=== PATIENT | male | born 1945 | race African-American/Black ===

== ENCOUNTER 2016-10-25 11:02 | Inpatient (IN) | payer OTHER ==
[2016-10-25 12:54] VITALS: BMI 24.2
--- NOTE | 2016-10-25 15:31 | HP ---
COWS - Scale Resting Pulse: 1= [place] 81-100 Sweatin= Chills/Flushing Restless Observation: 1= Difficult to Sit Still Pupil Size: 1= Pupils >than Normal Bone or Joint Aches: 2= Severe Diffuse Aches Runny Nose/ Eye Tearin= Nasal Congestion GI Upset > 30mins: 1= Stomach Cramp Tremor Observation: 1= Tremor [place], Not Seen Yawning Observation: 0= None Anxiety or Irritability: 2=Irritable/Anxious Goose Flesh Skin: 0=Smooth Skin COWS Score: 11 Admission ROS S - HPI Chief Complaint: I need help to stop using drugs Allergies/Adverse Reactions: Allergies Allergy/AdvReac Type Severity Reaction Status Date / Time No Known Allergies Allergy Verified 10/25/16 14:55 History of Present Illness: 71 y/o m pt with a h/o heroin dep. seeking detox. Exam Limitations: No Limitations - Ebola screening Have you traveled outside of the country in the last 21 days: No Have you had contact with anyone from an Ebola affected area: No Have you been sick,other than usual withdrawal symptoms: No - Review of Systems Constitutional: Malaise, Night Sweats, Changes in sleep EENT: reports: Blurred Vision, Dental Problems (dentures) Respiratory: reports: Shortness of Breath Cardiac: reports: No Symptoms Reported GI: reports: Abdominal cramping : reports: Frequency, Pain Musculoskeletal: reports: No Symptoms Reported Integumentary: reports: No Symptoms Reported Neuro: reports: Headache Endocrine: reports: No Symptoms Reported Hematology: reports: No Symptoms Reported Psychiatric: reports: Anxious, Depressed Other Systems: Reviewed and Negative Patient History - Patient Medical History Hx Anemia: No Hx Asthma: No Hx Chronic Obstructive Pulmonary Disease (COPD): Yes Hx Cancer: No Hx Cardiac Disorders: No Hx Congestive Heart Failure: No Hx Hypertension: Yes Hx Hypercholesterolemia: No Hx Pacemaker: No HX Cerebrovascular Accident: No Hx Seizures: No Hx Dementia: No Hx Diabetes: No Hx Gastrointestinal Disorders: No Hx Liver Disease: No Hx Genitourinary Disorders: No Hx Sexually Transmitted Disorders: No Hx Renal Disease (ESRD): No Hx Thyroid Disease: No Hx Human Immunodeficiency Virus (HIV): No Hx Hepatitis C: No Hx Depression: Yes Hx Suicide Attempt: No Hx Bipolar Disorder: No Hx Schizophrenia: No - Patient Surgical History Past Surgical History: No Hx Neurologic Surgery: No Hx Cataract Extraction: No Hx Cardiac Surgery: No Hx Lung Surgery: No Hx Breast Surgery: No Hx Breast Biopsy: No Hx Abdominal Surgery: No Hx Appendectomy: No Hx Cholecystectomy: No Hx Genitourinary Surgery: No Hx Section: No Hx Orthopedic Surgery: No Other Surgical History: hemorroidectomy Anesthesia Reaction: No - PPD History Previous Implant?: Yes Documented Results: Positive w/o proof Implanted On Prior [facility] Admission?: No - Reproductive History Patient is a Female of Child Bearing Age (11 -55 yrs old): No - Smoking Cessation Smoking history: Current every day smoker Have you smoked in the past 12 months: Yes Aproximately how many cigarettes per day: 10 Cigars Per Day: 0 Hx Chewing Tobacco Use: No Initiated information on smoking cessation: Yes 'Breaking Loose' booklet given: 10/25/16 - Substance & Tx. History Hx Alcohol Use: No Hx Substance Use: Yes Substance Use Type: Heroin Hx Substance Use Treatment: Yes - Substances Abused Heroin Route: Inhalation Frequency: Daily Amount used: 15-20 bags Age of first use: 30 Date of Last Use: 10/24/16 Alcohol Route: Oral Frequency: 1-2 times per week Amount used: 1 pint vodka Age of first use: 30 Date of Last Use: 10/24/16 Family Disease History - Family Disease History Family Disease History: Heart Disease: Father (HTN,ALCOHOL) Admission Physical Exam S - Vital Signs Vital Signs: Vital Signs - 24 hr 10/25/16 12:52 Temperature 97.4 F L Pulse Rate 73 Respiratory 20 Rate Blood Pressure 144/91 71 y/o m pt who slim but fit apearing younger than stated age, cooperating with exam. 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, Motor Strength 5/5, Normal Mood/Affect , Normal Response Integumentary: Yes: Moist Lymphatic: Yes: Within Normal Limits - Diagnostic (1) Alcohol abuse Current Visit: Yes Status: Acute (2) Opioid dependence with withdrawal Current Visit: Yes Status: Acute (3) HTN (hypertension) Current Visit: Yes Status: Chronic Qualifiers: Hypertension type: essential hypertension (4) Nicotine dependence Current Visit: Yes Status: Chronic Qualifiers: Nicotine product type: cigarettes Substance use status: uncomplicated Qualified Code(s): F17.210 - Nicotine dependence, cigarettes, uncomplicated Cleared for Admission [facility] - Detox or Rehab [facility] Level of Care: Medically Managed Detox Regimen/Protocol: Methadone [facility] Breath Alcohol Content Breath Alcohol Content: 0 Urine Drug Screen - Results Drug Screen Negative: No Urine Drug Screen Results: OPI-Opiates
[2016-10-25] MEDS ORDERED: ACETAMINOPHEN 325 MG TABLET (FP) PO PRN (15:50)
[2016-10-25] MEDS ORDERED: P-EPHED 60MG/TRIPROLIDI 2.5MG TABLET PO PRN (15:50)
[2016-10-25] MEDS ORDERED: MAG HYDROX/AL HYDROX/SIMETH 30 ML UNIT-DOSE CUP PO PRN (15:50)
[2016-10-25] MEDS ORDERED: MENTHOL/PHENOL 1 EACH UD MM PRN (15:50)
[2016-10-25] MEDS ORDERED: METHADONE HCL 10 MG TABLET (FOR DETOX USE ONLY) PO ONE ×2 (15:50→23:00)
[2016-10-25] MEDS ORDERED: hydrOXYzine PAMOATE 25 MG CAPSULE (FP) PO PRN (15:50)
[2016-10-25] MEDS ORDERED: MAGNESIUM CITRATE 300 ML BOTTLE PO PRN (15:50)
[2016-10-25] MEDS ORDERED: guaiFENesin/D-METHORPHAN HB 10 ML UNIT-DOSE CUPS PO PRN (15:50)
[2016-10-25] MEDS ORDERED: NICOTINE POLACRILEX 4 MG GUM BUC PRN (15:50)
[2016-10-25] MEDS ORDERED: MAGNESIUM HYDROX 2400MG/30ML ORAL SUSPENSION 30 ML CUP PO PRN (15:50)
[2016-10-25] MEDS ORDERED: LOPERAMIDE HCL 2 MG CAPSULE PO PRN (15:50)
[2016-10-25] MEDS: diazePAM 5 MG TABLET PO PRN (17:20)
--- NOTE | 2016-10-25 17:31 | CONSULT ---
[facility] Psychiatric Consult - Data Date of interview: 10/25/16 Admission source: [facility] Identifying data: Readmission to [facility] for this 71 y/o AA male seeking detox treatment for alcohol and heroin dependence.Patient is ,a father of three,domiciled and employed. Substance Abuse History: - Smoking Cessation. Smoking history: Current every day smoker. Have you smoked in the past 12 months: Yes. Aproximately how many cigarettes per day: 10. Cigars Per Day: 0. Hx Chewing Tobacco Use: No. Initiated information on smoking cessation: Yes. 'Breaking Loose' booklet given : 10/25/16. - Substance & Tx. History. Hx Alcohol Use: No. Hx Substance Use: Yes. Substance Use Type: Heroin. Hx Substance Use Treatment: Yes. - Substances Abused. Heroin. Route: Inhalation. Frequency: Daily. Amount used: 15-20 bags. Age of first use: 30. Date of Last Use: 10/24/16. Alcohol. Route: Oral. Frequency: 1-2 times per week. Amount used: 1 pint vodka. Age of first use: 30. Date of Last Use: 10/24/16. Confirmed by patient. Medical History: Hypertension. Psychiatric History: Patient denies history of mental illness.Used to see a psychiatrist for the management of insomnia.Mr Wiggins indicates that a low dose of seroquel (25 mg/hs) had helped him in the past.No history of suicide attempts. Physical/Sexual Abuse/Trauma History: Patient denies. Mental Status Exam - Mental Status Exam Alert and Oriented to: Time, Place, Person Cognitive Function: Good Patient Appearance: Well Groomed Mood: Hopeful, Euthymic Affect: Appropriate, Normal Range Patient Behavior: Fatigued, Appropriate, Cooperative Speech Pattern: Clear, Appropriate Voice Loudness: Normal Thought Process: Goal Oriented Thought Disorder: Not Present Hallucinations: Denies Suicidal Ideation: Denies Homicidal Ideation: Denies Insight/Judgement: Poor Sleep: Poorly, Difficulty falling asleep Appetite: Fair Muscle strength/Tone: Normal Gait/Station: Normal Psychiatric Findings - Problem List ([place] 1, 2,3) (1) Opioid dependence with withdrawal Current Visit: Yes Status: Acute (2) Alcohol dependence Current Visit: Yes Status: Acute Qualifiers: Substance use status: in withdrawal Complication of substance-induced condition: uncomplicated Qualified Code(s): F10.230 - Alcohol dependence with withdrawal, uncomplicated (3) Nicotine dependence Current Visit: Yes Status: Acute Qualifiers: Nicotine product type: cigarettes Substance use status: uncomplicated Qualified Code(s): F17.210 - Nicotine dependence, cigarettes, uncomplicated (4) HTN (hypertension) Current Visit: Yes Status: Chronic Qualifiers: Hypertension type: essential hypertension (5) Insomnia Current Visit: Yes Status: Acute - Initial Treatment Plan Initial Treatment Plan: Psychoeducation.Detoxification.Seroquel 25 mg po hs.Side effects/benefits reviewed with patient.He agrees with this careplan.Observation.
[2016-10-25] MEDS ORDERED: amLODIPine BESYLATE 10 MG TABLET (FP) PO ONE ×2 (17:45→20:45)
[2016-10-25] MEDS ORDERED: QUEtiapine FUMARATE 25 MG TABLET (FP) PO SCH (22:00)
[2016-10-25] MEDS ORDERED: diphenhydrAMINE HCL 50 MG CAPSULE PO PRN (22:00)
[2016-10-25 22:12] LABS: URINE APPEARANCE CLEAR; URINE BILIRUBIN NEGATIVE (NEGATIVE); URINE BLOOD NEGATIVE (NEGATIVE); URINE COLOR LTYELLOW; URINE GLUCOSE (UA) NEGATIVE (NEGATIVE); URINE KETONE NEGATIVE (NEGATIVE); URINE LEUK ESTERASE NEGATIVE (NEGATIVE); URINE NITRITE NEGATIVE (NEGATIVE); URINE PROTEIN NEGATIVE (NEGATIVE); URINE UROBILINOGEN NEGATIVE E.U./dl (0.2-1.0)
[2016-10-25] MEDS: THIAMINE HCL 100 MG TABLET (FP) PO SCH (22:17)
[2016-10-26] MEDS: diazePAM 5 MG TABLET PO PRN (01:22)
[2016-10-26] MEDS: IBUPROFEN 400 MG TABLET (FP) PO PRN (01:24)
[2016-10-26] MEDS ORDERED: CYCLOBENZAPRINE HCL 10 MG TABLET (FP) PO PRN (03:06)
[2016-10-26] MEDS ORDERED: METHADONE HCL 10 MG TABLET (FOR DETOX USE ONLY) PO ONE (10:00)
[2016-10-26] MEDS: PRENATAL VITAMINS W/ FOLIC ACID TABLET (FP) PO SCH (10:23)
[2016-10-26] MEDS: NICOTINE 21 MG/24 HOURS TOPICAL PATCH TD SCH (10:23)
[2016-10-26] MEDS: amLODIPine BESYLATE 10 MG TABLET (FP) PO SCH (10:23)
[2016-10-26 10:38] LABS: MCH 28.9 pg (25.7-33.7); MCHC 32.8 g/dl (32.0-35.9); MEAN CELL VOLUME 88.1 fl (80-96); MEAN PLT VOLUME 8.4 fl (7.5-11.1); PLATELET COUNT 198 K/MM3 (134-434); WHITE BLOOD COUNT 5.8 K/mm3 (4.0-10.0)
[2016-10-26 11:00] LABS: ALBUMIN 3.7 g/dl (3.4-5.0); ALK PHOS 131 U/L (45-117); ANION GAP 11 (8-16); BILIRUBIN,TOTAL 1.2 mg/dL (0.2-1.0); CALCIUM 9.1 mg/dL (8.5-10.1); CO2 30 mmol/L (21-32); COCKROFT - GAULT 72.44; CREATININE 0.9 mg/dL (0.7-1.3); GLUCOSE,RANDOM 149 mg/dL (74-106); SGOT/AST 27 U/L (15-37); SGPT/ALT 43 U/L (12-78); TOT PROT 6.6 g/dl (6.4-8.2)
--- NOTE | 2016-10-26 11:44 | PN ---
BHS COWS - Scale Resting Pulse: 0= [place] 80 or Below Sweatin= Chills/Flushing Restless Observation: 3= Extraneous Movement Pupil Size: 2= Moderately Dilated Bone or Joint Aches: 4=Acute Joint/Muscle Pain Runny Nose/ Eye Tearin= Nasal Congestion GI Upset > 30mins: 1= Stomach Cramp Tremor Observation of Outstretched Hands: 2= Slight Tremor Visible Yawning Observation: 2= >3x During Session Anxiety or Irritability: 2=Irritable/Anxious Goose Flesh Skin: 0=Smooth Skin COWS Score: 18 BHS Progress Note (SOAP) Subjective: ANXIETY,SWEATS,FATIGUE. Objective: 10/26/16 11:41 Vital Signs Temperature 96.5 F L 10/26/16 10:26 Pulse Rate 79 10/26/16 10:26 Respiratory Rate 18 10/26/16 10:26 Blood Pressure 132/85 10/26/16 10:26 O2 Sat by Pulse Oximetry (%) Laboratory Last Values WBC 5.8 K/mm3 (4.0-10.0) 10/26/16 06:00 RBC 4.57 M/mm3 (4.00-5.60) 10/26/16 06:00 Hgb 13.2 GM/dL (11.7-16.9) 10/26/16 06:00 Hct 40.3 % (35.4-49) 10/26/16 06:00 MCV 88.1 fl (80-96) 10/26/16 06:00 MCHC 32.8 g/dl (32.0-35.9) 10/26/16 06:00 RDW 12.0 % (11.9-15.9) 10/26/16 06:00 Plt Count 198 K/MM3 (134-434) 10/26/16 06:00 MPV 8.4 fl (7.5-11.1) 10/26/16 06:00 Sodium 141 mmol/L (136-145) 10/26/16 06:00 Potassium 3.8 mmol/L (3.5-5.1) 10/26/16 06:00 Chloride 100 mmol/L (98-107) 10/26/16 06:00 Carbon Dioxide 30 mmol/L (21-32) 10/26/16 06:00 Anion Gap 11 (8-16) 10/26/16 06:00 BUN 13 mg/dL (7-18) D 10/26/16 06:00 Creatinine 0.9 mg/dL (0.7-1.3) 10/26/16 06:00 Creat Clearance w eGFR > 60 (>60) 10/26/16 06:00 Random Glucose 149 mg/dL (74-106) H D 10/26/16 06:00 Calcium 9.1 mg/dL (8.5-10.1) 10/26/16 06:00 Total Bilirubin 1.2 mg/dL (0.2-1.0) H 10/26/16 06:00 AST 27 U/L (15-37) D 10/26/16 06:00 ALT 43 U/L (12-78) D 10/26/16 06:00 Alkaline Phosphatase 131 U/L (45-117) H 10/26/16 06:00 Total Protein 6.6 g/dl (6.4-8.2) 10/26/16 06:00 Albumin 3.7 g/dl (3.4-5.0) 10/26/16 06:00 Urine Color Ltyellow 10/25/16 21:30 Urine Appearance Clear 10/25/16 21:30 Urine pH 8.0 (5.0-8.0) 10/25/16 21:30 Urine Protein Negative (NEGATIVE) 10/25/16 21:30 Urine Glucose (UA) Negative (NEGATIVE) 10/25/16 21:30 Urine Ketones Negative (NEGATIVE) 10/25/16 21:30 Urine Blood Negative (NEGATIVE) 10/25/16 21:30 Urine Nitrite Negative (NEGATIVE) 10/25/16 21:30 Urine Bilirubin Negative (NEGATIVE) 10/25/16 21:30 Urine Urobilinogen Negative E.U./dl (0.2-1.0) 10/25/16 21:30 Ur Leukocyte Esterase Negative (NEGATIVE) 10/25/16 21:30 Assessment: 10/26/16 11:41 WITHDRAWAL SX Plan: CONTINUE DETOX
--- NOTE | 2016-10-26 17:18 | EKG ---
Test Reason : Blood Pressure : / mmHG Vent. Rate : 075 BPM Atrial Rate : 075 BPM P-R Int : 168 ms QRS Dur : 084 ms QT Int : 372 ms P-R-T Axes : 078 063 -76 degrees QTc Int : 415 ms NORMAL SINUS RHYTHM T WAVE ABNORMALITY, CONSIDER INFERIOR ISCHEMIA ABNORMAL ECG WHEN COMPARED WITH ECG OF 25-OCT-2016 16:24, Confirmed by GEORGIA ORDOÑEZ MD ([id number]) on 10/26/2016 5:18:06 PM Referred By: Confirmed By:GEORGIA ORDOÑEZ MD
--- NOTE | 2016-10-26 17:21 | EKG ---
Test Reason : Blood Pressure : / mmHG Vent. Rate : 064 BPM Atrial Rate : 064 BPM P-R Int : 162 ms QRS Dur : 084 ms QT Int : 408 ms P-R-T Axes : 079 068 -63 degrees QTc Int : 420 ms SINUS RHYTHM WITH MARKED SINUS ARRHYTHMIA SEPTAL INFARCT , AGE UNDETERMINED T WAVE ABNORMALITY, CONSIDER INFERIOR ISCHEMIA ABNORMAL ECG NO PREVIOUS ECGS AVAILABLE Confirmed by GEORGIA ORDOÑEZ MD ([id number]) on 10/26/2016 5:20:56 PM Referred By: Confirmed By:GEORGIA ORDOÑEZ MD
[2016-10-26] MEDS: THIAMINE HCL 100 MG TABLET (FP) PO SCH (22:11)
[2016-10-27] MEDS: diazePAM 5 MG TABLET PO PRN (05:53)
[2016-10-27] MEDS ORDERED: METHADONE HCL 5 MG TABLET (FOR DETOX USE ONLY) PO ONE (10:00)
[2016-10-27] MEDS: PRENATAL VITAMINS W/ FOLIC ACID TABLET (FP) PO SCH (10:22)
[2016-10-27] MEDS: amLODIPine BESYLATE 10 MG TABLET (FP) PO SCH (10:22)
[2016-10-27] MEDS: NICOTINE 21 MG/24 HOURS TOPICAL PATCH TD SCH (10:23)
[2016-10-27] MEDS: IBUPROFEN 400 MG TABLET (FP) PO PRN (11:49)
--- NOTE | 2016-10-27 13:07 | PN ---
S COWS - Scale Resting Pulse: 1= [place] 81-100 Sweatin= Chills/Flushing Restless Observation: 1= Difficult to Sit Still Pupil Size: 0= Normal to Room Light Bone or Joint Aches: 2= Severe Diffuse Aches Runny Nose/ Eye Tearin= Runny Nose/Eyes GI Upset > 30mins: 1= Stomach Cramp Tremor Observation of Outstretched Hands: 2= Slight Tremor Visible Yawning Observation: 1= 1-2x During Session Anxiety or Irritability: 2=Irritable/Anxious Goose Flesh Skin: 3=[place]il[place] COWS Score: 16 BHS Progress Note (SOAP) Subjective: Fatigue, Interrupted Sleep, H/A, Sweating. Objective: PT. A & O X 3, OBSERVED AMBULATING ON UNIT. PT. DENIES CHEST PAIN. 10/27/16 13:05 Vital Signs Temperature 96.5 F L 10/27/16 10:21 Pulse Rate 86 10/27/16 10:21 Respiratory Rate 18 10/27/16 10:21 Blood Pressure 140/90 10/27/16 10:21 O2 Sat by Pulse Oximetry (%) Laboratory Last Values WBC 5.8 K/mm3 (4.0-10.0) 10/26/16 06:00 RBC 4.57 M/mm3 (4.00-5.60) 10/26/16 06:00 Hgb 13.2 GM/dL (11.7-16.9) 10/26/16 06:00 Hct 40.3 % (35.4-49) 10/26/16 06:00 MCV 88.1 fl (80-96) 10/26/16 06:00 MCHC 32.8 g/dl (32.0-35.9) 10/26/16 06:00 RDW 12.0 % (11.9-15.9) 10/26/16 06:00 Plt Count 198 K/MM3 (134-434) 10/26/16 06:00 MPV 8.4 fl (7.5-11.1) 10/26/16 06:00 Sodium 141 mmol/L (136-145) 10/26/16 06:00 Potassium 3.8 mmol/L (3.5-5.1) 10/26/16 06:00 Chloride 100 mmol/L (98-107) 10/26/16 06:00 Carbon Dioxide 30 mmol/L (21-32) 10/26/16 06:00 Anion Gap 11 (8-16) 10/26/16 06:00 BUN 13 mg/dL (7-18) D 10/26/16 06:00 Creatinine 0.9 mg/dL (0.7-1.3) 10/26/16 06:00 Creat Clearance w eGFR > 60 (>60) 10/26/16 06:00 Random Glucose 149 mg/dL (74-106) H D 10/26/16 06:00 Calcium 9.1 mg/dL (8.5-10.1) 10/26/16 06:00 Total Bilirubin 1.2 mg/dL (0.2-1.0) H 10/26/16 06:00 AST 27 U/L (15-37) D 10/26/16 06:00 ALT 43 U/L (12-78) D 10/26/16 06:00 Alkaline Phosphatase 131 U/L (45-117) H 10/26/16 06:00 Total Protein 6.6 g/dl (6.4-8.2) 10/26/16 06:00 Albumin 3.7 g/dl (3.4-5.0) 10/26/16 06:00 Urine Color Ltyellow 10/25/16 21:30 Urine Appearance Clear 10/25/16 21:30 Urine pH 8.0 (5.0-8.0) 10/25/16 21:30 Ur Specific [place] 1.015 (1.005-1.025) 10/25/16 21:30 Urine Protein Negative (NEGATIVE) 10/25/16 21:30 Urine Glucose (UA) Negative (NEGATIVE) 10/25/16 21:30 Urine Ketones Negative (NEGATIVE) 10/25/16 21:30 Urine Blood Negative (NEGATIVE) 10/25/16 21:30 Urine Nitrite Negative (NEGATIVE) 10/25/16 21:30 Urine Bilirubin Negative (NEGATIVE) 10/25/16 21:30 Urine Urobilinogen Negative E.U./dl (0.2-1.0) 10/25/16 21:30 Ur Leukocyte Esterase Negative (NEGATIVE) 10/25/16 21:30 RPR Titer Nonreactive (NONREACTIVE) 10/26/16 06:00 LABS NOTED. Assessment: 10/27/16 13:06 WITHDRAWAL SYMPTOMS. Plan: CONTINUE DETOX. ADVISED PATIENT TO FOLLOW-UP WITH LOCKER ROOM SUPERVISOR AFTER DISCHARGE FROM DETOX FOR GENERAL MEDICAL ASSESSMENT AND FOR ABNORMAL ADMISSION LAB VALUES.
--- NOTE | 2016-10-27 13:52 | PN ---
[facility] Progress Note Note: Psychiatry Attending's note. Request for re-consult is aknowledged. Reason offered : oversedation on seroquel. Chart reviewed.Patient is NOT on quetiapine. Mr Wiggins is examined at bedside. Found to be alert and fully oriented.Conversant. Does admit to daytime sleepiness/drowsiness. Observed walking around unit shortly after interview. No evidence of unsteady gait.Appropriate grooming. Adherent to his plan of care.Vitals : 136/85 @ 13:25. Recommendations : Falls precautions. Medical consult. Revisit detox protocol. No psychiatric issues at this time.
[2016-10-27] MEDS: THIAMINE HCL 100 MG TABLET (FP) PO SCH (22:01)
[2016-10-28] MEDS: IBUPROFEN 400 MG TABLET (FP) PO PRN (06:10)
[2016-10-28] MEDS ORDERED: METHADONE HCL 5 MG TABLET (FOR DETOX USE ONLY) PO ONE (10:00)
[2016-10-28] MEDS: NICOTINE 21 MG/24 HOURS TOPICAL PATCH TD SCH (10:11)
[2016-10-28] MEDS: amLODIPine BESYLATE 10 MG TABLET (FP) PO SCH (10:11)
[2016-10-28] MEDS: PRENATAL VITAMINS W/ FOLIC ACID TABLET (FP) PO SCH (10:11)
--- NOTE | 2016-10-28 12:41 | PN ---
BHS Progress Note (SOAP) Subjective: Interrupted sleep, H/A, Sweating. Objective: PT. A & O X 3, OBSERVED AMBULATING ON UNIT. PT. DENIES CHEST PAIN. 10/28/16 12:39 Vital Signs Temperature 98.8 F 10/28/16 09:36 Pulse Rate 75 10/28/16 09:36 Respiratory Rate 18 10/28/16 09:36 Blood Pressure 118/73 10/28/16 09:36 O2 Sat by Pulse Oximetry (%) Laboratory Last Values WBC 5.8 K/mm3 (4.0-10.0) 10/26/16 06:00 RBC 4.57 M/mm3 (4.00-5.60) 10/26/16 06:00 Hgb 13.2 GM/dL (11.7-16.9) 10/26/16 06:00 Hct 40.3 % (35.4-49) 10/26/16 06:00 MCV 88.1 fl (80-96) 10/26/16 06:00 MCHC 32.8 g/dl (32.0-35.9) 10/26/16 06:00 RDW 12.0 % (11.9-15.9) 10/26/16 06:00 Plt Count 198 K/MM3 (134-434) 10/26/16 06:00 MPV 8.4 fl (7.5-11.1) 10/26/16 06:00 Sodium 141 mmol/L (136-145) 10/26/16 06:00 Potassium 3.8 mmol/L (3.5-5.1) 10/26/16 06:00 Chloride 100 mmol/L (98-107) 10/26/16 06:00 Carbon Dioxide 30 mmol/L (21-32) 10/26/16 06:00 Anion Gap 11 (8-16) 10/26/16 06:00 BUN 13 mg/dL (7-18) D 10/26/16 06:00 Creatinine 0.9 mg/dL (0.7-1.3) 10/26/16 06:00 Creat Clearance w eGFR > 60 (>60) 10/26/16 06:00 Random Glucose 149 mg/dL (74-106) H D 10/26/16 06:00 Calcium 9.1 mg/dL (8.5-10.1) 10/26/16 06:00 Total Bilirubin 1.2 mg/dL (0.2-1.0) H 10/26/16 06:00 AST 27 U/L (15-37) D 10/26/16 06:00 ALT 43 U/L (12-78) D 10/26/16 06:00 Alkaline Phosphatase 131 U/L (45-117) H 10/26/16 06:00 Total Protein 6.6 g/dl (6.4-8.2) 10/26/16 06:00 Albumin 3.7 g/dl (3.4-5.0) 10/26/16 06:00 Urine Color Ltyellow 10/25/16 21:30 Urine Appearance Clear 10/25/16 21:30 Urine pH 8.0 (5.0-8.0) 10/25/16 21:30 Ur Specific [place] 1.015 (1.005-1.025) 10/25/16 21:30 Urine Protein Negative (NEGATIVE) 10/25/16 21:30 Urine Glucose (UA) Negative (NEGATIVE) 10/25/16 21:30 Urine Ketones Negative (NEGATIVE) 10/25/16 21:30 Urine Blood Negative (NEGATIVE) 10/25/16 21:30 Urine Nitrite Negative (NEGATIVE) 10/25/16 21:30 Urine Bilirubin Negative (NEGATIVE) 10/25/16 21:30 Urine Urobilinogen Negative E.U./dl (0.2-1.0) 10/25/16 21:30 Ur Leukocyte Esterase Negative (NEGATIVE) 10/25/16 21:30 RPR Titer Nonreactive (NONREACTIVE) 10/26/16 06:00 LABS NOTED. Assessment: 10/28/16 12:40 WITHDRAWAL SYMPTOMS. Plan: CONTINUE DETOX. ADVISED PATIENT TO FOLLOW-UP WITH SUPERVISOR [employer] AFTER DISCHARGE FROM DETOX FOR GENERAL MEDICAL ASSESSMENT AND FOR ABNORMAL DETOX ADMISSION LAB VALUES.
[2016-10-28] MEDS: THIAMINE HCL 100 MG TABLET (FP) PO SCH (22:09)
[2016-10-29] MEDS: PRENATAL VITAMINS W/ FOLIC ACID TABLET (FP) PO SCH (09:40)
[2016-10-29] MEDS: NICOTINE 21 MG/24 HOURS TOPICAL PATCH TD SCH (09:40)
[2016-10-29] MEDS: amLODIPine BESYLATE 10 MG TABLET (FP) PO SCH (09:40)
[2016-10-29] MEDS ORDERED: METHADONE HCL 10 MG TABLET (FOR DETOX USE ONLY) PO ONE (10:00)
--- NOTE | 2016-10-29 13:59 | PN ---
BHS Progress Note (SOAP) Subjective: Interrupted Sleep, H/A, Tremors. Objective: PT. A & O X 3, OBSERVED AMBULATING ON UNIT. PT. DENIES CHEST PAIN. 10/29/16 13:58 Vital Signs Temperature 98.2 F 10/29/16 09:56 Pulse Rate 73 10/29/16 09:56 Respiratory Rate 18 10/29/16 09:56 Blood Pressure 128/80 10/29/16 09:56 O2 Sat by Pulse Oximetry (%) Laboratory Last Values WBC 5.8 K/mm3 (4.0-10.0) 10/26/16 06:00 RBC 4.57 M/mm3 (4.00-5.60) 10/26/16 06:00 Hgb 13.2 GM/dL (11.7-16.9) 10/26/16 06:00 Hct 40.3 % (35.4-49) 10/26/16 06:00 MCV 88.1 fl (80-96) 10/26/16 06:00 MCHC 32.8 g/dl (32.0-35.9) 10/26/16 06:00 RDW 12.0 % (11.9-15.9) 10/26/16 06:00 Plt Count 198 K/MM3 (134-434) 10/26/16 06:00 MPV 8.4 fl (7.5-11.1) 10/26/16 06:00 Sodium 141 mmol/L (136-145) 10/26/16 06:00 Potassium 3.8 mmol/L (3.5-5.1) 10/26/16 06:00 Chloride 100 mmol/L (98-107) 10/26/16 06:00 Carbon Dioxide 30 mmol/L (21-32) 10/26/16 06:00 Anion Gap 11 (8-16) 10/26/16 06:00 BUN 13 mg/dL (7-18) D 10/26/16 06:00 Creatinine 0.9 mg/dL (0.7-1.3) 10/26/16 06:00 Creat Clearance w eGFR > 60 (>60) 10/26/16 06:00 Random Glucose 149 mg/dL (74-106) H D 10/26/16 06:00 Calcium 9.1 mg/dL (8.5-10.1) 10/26/16 06:00 Total Bilirubin 1.2 mg/dL (0.2-1.0) H 10/26/16 06:00 AST 27 U/L (15-37) D 10/26/16 06:00 ALT 43 U/L (12-78) D 10/26/16 06:00 Alkaline Phosphatase 131 U/L (45-117) H 10/26/16 06:00 Total Protein 6.6 g/dl (6.4-8.2) 10/26/16 06:00 Albumin 3.7 g/dl (3.4-5.0) 10/26/16 06:00 Urine Color Ltyellow 10/25/16 21:30 Urine Appearance Clear 10/25/16 21:30 Urine pH 8.0 (5.0-8.0) 10/25/16 21:30 Ur Specific [place] 1.015 (1.005-1.025) 10/25/16 21:30 Urine Protein Negative (NEGATIVE) 10/25/16 21:30 Urine Glucose (UA) Negative (NEGATIVE) 10/25/16 21:30 Urine Ketones Negative (NEGATIVE) 10/25/16 21:30 Urine Blood Negative (NEGATIVE) 10/25/16 21:30 Urine Nitrite Negative (NEGATIVE) 10/25/16 21:30 Urine Bilirubin Negative (NEGATIVE) 10/25/16 21:30 Urine Urobilinogen Negative E.U./dl (0.2-1.0) 10/25/16 21:30 Ur Leukocyte Esterase Negative (NEGATIVE) 10/25/16 21:30 RPR Titer Nonreactive (NONREACTIVE) 10/26/16 06:00 LABS NOTED. Assessment: 10/29/16 13:58 WITHDRAWAL SYMPTOMS. Plan: CONTINUE DETOX.
[2016-10-29] MEDS: THIAMINE HCL 100 MG TABLET (FP) PO SCH (22:24)
[2016-10-29] MEDS: IBUPROFEN 400 MG TABLET (FP) PO PRN (22:25)
[2016-10-30] MEDS ORDERED: METHADONE HCL 5 MG TABLET (FOR DETOX USE ONLY) PO ONE (06:00)
[2016-10-30 06:35] VITALS: PULSE 71
[2016-10-30 09:33] VITALS: BP 129/80; TEMP 97.7
[2016-10-30] MEDS: PRENATAL VITAMINS W/ FOLIC ACID TABLET (FP) PO SCH (10:20)
[2016-10-30] MEDS: NICOTINE 21 MG/24 HOURS TOPICAL PATCH TD SCH (10:20)
[2016-10-30] MEDS: amLODIPine BESYLATE 10 MG TABLET (FP) PO SCH (10:20)
--- NOTE | 2016-10-30 16:54 | DS ---
[facility] Detox Discharge Summary Admission Date: 10/25/16 Discharge Date: 10/30/16 - History Present History: Opioid Dependence Additional Comments: ADVISED PATIENT TO FOLLOW-UP WITH SYSTEMS ENGINEER / REHAB MEDICAL PROVIDER AFTER DISCHARGE FROM DETOX FOR GENERAL MEDICAL ASSESSMENT. Pertinent Past History: COPD, Depression, HTN. - Physical Exam Results Vital Signs: Vital Signs Temperature 97.7 F 10/30/16 09:33 Pulse Rate 71 10/30/16 09:33 Respiratory Rate 18 10/30/16 09:33 Blood Pressure 129/80 10/30/16 09:33 O2 Sat by Pulse Oximetry (%) Pertinent Admission Physical Exam Findings: WITHDRAWAL SYMPTOMS. Laboratory Tests 10/25/16 10/26/16 10/26/16 21:30 06:00 06:00 WBC 5.8 RBC 4.57 Hgb 13.2 Hct 40.3 MCV 88.1 MCHC 32.8 RDW 12.0 Plt Count 198 MPV 8.4 Sodium 141 Potassium 3.8 Chloride 100 Carbon Dioxide 30 Anion Gap 11 BUN 13 D Creatinine 0.9 Creat Clearance w eGFR > 60 Random Glucose 149 H D Calcium 9.1 Total Bilirubin 1.2 H AST 27 D ALT 43 D Alkaline Phosphatase 131 H Total Protein 6.6 Albumin 3.7 Urine Color Ltyellow Urine Appearance Clear Urine pH 8.0 Ur Specific [place] 1.015 Urine Protein Negative Urine Glucose (UA) Negative Urine Ketones Negative Urine Blood Negative Urine Nitrite Negative Urine Bilirubin Negative Urine Urobilinogen Negative Ur Leukocyte Esterase Negative RPR Titer 10/26/16 06:00 WBC RBC Hgb Hct MCV MCHC RDW Plt Count MPV Sodium Potassium Chloride Carbon Dioxide Anion Gap BUN Creatinine Creat Clearance w eGFR Random Glucose Calcium Total Bilirubin AST ALT Alkaline Phosphatase Total Protein Albumin Urine Color Urine Appearance Urine pH Ur Specific [place] Urine Protein Urine Glucose (UA) Urine Ketones Urine Blood Urine Nitrite Urine Bilirubin Urine Urobilinogen Ur Leukocyte Esterase RPR Titer Nonreactive LABS NOTED. - Treatment Hospital Course: Detox Protocol Followed, Detoxed Safely, Responded well, Discharged Condition Good, Rehab Referral Accepted Patient has Accepted a Rehab Referral to: YES - [facility]. - Medication Discharge Medications: Ambulatory Orders Amlodipine Besylate [Norvasc -] 10 mg PO DAILY 10/21/15 - Diagnosis (1) Alcohol abuse Status: Acute (2) Nicotine dependence Status: Chronic Qualifiers: Nicotine product type: cigarettes Substance use status: uncomplicated Qualified Code(s): F17.210 - Nicotine dependence, cigarettes, uncomplicated (3) Opioid dependence with withdrawal Status: Acute (4) HTN (hypertension) Status: Chronic Qualifiers: Hypertension type: essential hypertension (5) Insomnia Status: Acute Qualifiers: Insomnia type: unspecified Qualified Code(s): G47.00 - Insomnia, unspecified - AMA Did Patient Leave Against Medical Advice: No
== END 2016-10-30 12:23 | disposition other institution (70) | DRG 897 ==
LOC: YASAS 11:02 → Y3N 16:17
PROVIDERS: ADMIT Internal Medicine; ATTEND Internal Medicine
PROC: HZ2ZZZZ Detoxification Services for Substance Abuse Treatment (ICD-10-PCS; principal; 2016-10-30)
DX: F11.23 Opioid dependence with withdrawal (principal); F10.230 Alcohol dependence with withdrawal, uncomplicated; F17.210 Nicotine dependence, cigarettes, uncomplicated; G47.00 Insomnia, unspecified; I10 Essential (primary) hypertension
CPT/HCPCS: 36415; 80053; 81003; 85027; 86593; 93005; 93010

== ENCOUNTER 2016-10-30 12:37 | Inpatient (IN) | payer OTHER ==
[2016-10-30] MEDS ORDERED: P-EPHED 60MG/TRIPROLIDI 2.5MG TABLET PO PRN (15:55)
[2016-10-30] MEDS ORDERED: LOPERAMIDE HCL 2 MG CAPSULE PO PRN (15:55)
[2016-10-30] MEDS ORDERED: guaiFENesin/D-METHORPHAN HB 10 ML UNIT-DOSE CUPS PO PRN (15:55)
[2016-10-30] MEDS ORDERED: ACETAMINOPHEN 325 MG TABLET (FP) PO PRN (15:55)
[2016-10-30] MEDS ORDERED: MAG HYDROX/AL HYDROX/SIMETH 30 ML UNIT-DOSE CUP PO PRN (15:55)
[2016-10-30] MEDS ORDERED: MENTHOL/PHENOL 1 EACH UD MM PRN (15:55)
[2016-10-30] MEDS ORDERED: IBUPROFEN 400 MG TABLET (FP) PO PRN (15:55)
[2016-10-30] MEDS ORDERED: MAGNESIUM HYDROX 2400MG/30ML ORAL SUSPENSION 30 ML CUP PO PRN (15:55)
[2016-10-30] MEDS ORDERED: MAGNESIUM CITRATE 300 ML BOTTLE PO PRN (15:55)
--- NOTE | 2016-10-30 16:00 | HP ---
[facility] Rehab Assess/Revision - Admission History Admitted to Rehab from: [facility] Date of Admission to Rehab: 10/30/16 - Vital signs Vital Signs: Vital Signs Period Temp Pulse Resp BP Sys/Cason Pulse Ox Last 24 Hr 97.7 F-97.7 F 71-71 18-18 142-142/73-73 - Findings Detox History & Physical reviewed: Yes Concur with findings: Yes Comments/Additional Findings: for rehab as protocol
[2016-10-30] MEDS: THIAMINE HCL 100 MG TABLET (FP) PO SCH (23:02)
[2016-10-31] MEDS: amLODIPine BESYLATE 10 MG TABLET (FP) PO SCH ×2 (07:39→10:04)
[2016-10-31] MEDS: NICOTINE 21 MG/24 HOURS TOPICAL PATCH TD SCH (10:03)
[2016-10-31] MEDS: PRENATAL VITAMINS W/ FOLIC ACID TABLET (FP) PO SCH (10:03)
[2016-10-31] MEDS: hydrOXYzine PAMOATE 50 MG CAPSULE (FP) PO PRN ×2 (19:05→23:14)
[2016-10-31] MEDS: diphenhydrAMINE HCL 50 MG CAPSULE PO PRN (21:41)
[2016-10-31] MEDS: THIAMINE HCL 100 MG TABLET (FP) PO SCH (21:41)
--- NOTE | 2016-11-01 07:45 | HP ---
Psychiatrist Admission - Data Date of interview: 11/01/16 Admission source: 3N Identifying data: This is the second [facility] admission for this 71 years old Black male, father of 3 children, unemployed on SSI, domiciled Medical History: Significant for COPD, HTN, PPD+ and history of surgery for hemorrhoid Psychiatric History: Patient denies history of mental illness.Used to see a psychiatrist for the management of insomnia.Mr Wiggins indicates that a low dose of seroquel (25 mg/hs) had helped him in the past.No history of suicide attempts. Physical/Sexual Abuse/Trauma History: Denies history of emotional, physical or sexual abuse as well as DV relationship Additional Comment: Reports history of 2 misdemeanor arrests. Denies being on probation at present Vital Signs: Vital Signs - 24 hr 10/31/16 10/31/16 11/01/16 10:29 10:45 00:30 Temperature Pulse Rate 83 83 Respiratory 18 18 18 Rate Blood Pressure 134/86 134/86 11/01/16 11/01/16 03:30 06:56 Temperature 98.4 F Pulse Rate 79 Respiratory 18 18 Rate Blood Pressure 141/96 Allergies/Adverse Reactions: Allergies Allergy/AdvReac Type Severity Reaction Status Date / Time No Known Allergies Allergy Verified 10/30/16 12:46 Date of last physical exam: 10/25/16 Concur with the findings of this exam: Yes - Substance Abuse/Tx History Hx Alcohol Use: Yes Hx Substance Use: Yes Substance Use Type: Alcohol (Started drinking alcohol at age 30, consumes one pint of vodka1-2 times weekly. Last drink on 10/24/16), Heroin (Started using heroin at age 30, consumes 15-20 bags daily. Last used on 10/24/16) Hx Substance Use Treatment: Yes (2 previous inpt detox & one inpt rehab @ [facility]) - Admission Criteria Previous failed treatment: No Poor recovery environment: Yes Comorbidities: Yes Lacks judgement: Yes Mental Status Exam - Mental Status Exam Alert and Oriented to: Time, Place, Person Cognitive Function: Fair Patient Appearance: Well Groomed Mood: Depressed Affect: Normal Range Patient Behavior: Cooperative Speech Pattern: Clear Voice Loudness: Normal Thought Process: Intact Thought Disorder: Not Present Hallucinations: Denies Suicidal Ideation: Denies Homicidal Ideation: Denies Insight/Judgement: Fair Sleep: Poorly Appetite: Good Muscle strength/Tone: Normal Gait/Station: Normal Psychiatric Findings - Problem List ([place] 1, 2,3) (1) Alcohol dependence Current Visit: No Status: Acute Qualifiers: Substance use status: in withdrawal Complication of substance-induced condition: uncomplicated Qualified Code(s): F10.230 - Alcohol dependence with withdrawal, uncomplicated (2) Opioid dependence Current Visit: No Status: Acute (3) Nicotine dependence Current Visit: No Status: Chronic Qualifiers: Nicotine product type: cigarettes Substance use status: uncomplicated Qualified Code(s): F17.210 - Nicotine dependence, cigarettes, uncomplicated (4) Substance induced mood disorder Current Visit: Yes Status: Acute (5) Substance or medication-induced sleep disorder, insomnia type Current Visit: No Status: Acute (6) HTN (hypertension) Current Visit: No Status: Chronic Qualifiers: Hypertension type: essential hypertension (7) PPD positive Current Visit: Yes Status: Acute - Initial Treatment Plan Initial Treatment Plan: 1) Continue Seroquel 25 mg po HS. 2) Monitor progress
[2016-11-01] MEDS: PRENATAL VITAMINS W/ FOLIC ACID TABLET (FP) PO SCH (10:27)
[2016-11-01] MEDS: amLODIPine BESYLATE 10 MG TABLET (FP) PO SCH (10:27)
[2016-11-01] MEDS: NICOTINE 21 MG/24 HOURS TOPICAL PATCH TD SCH (10:28)
[2016-11-01] MEDS: hydrOXYzine PAMOATE 50 MG CAPSULE (FP) PO PRN (21:50)
[2016-11-01] MEDS: THIAMINE HCL 100 MG TABLET (FP) PO SCH (21:50)
[2016-11-02] MEDS: diphenhydrAMINE HCL 50 MG CAPSULE PO PRN (01:35)
[2016-11-02] MEDS: hydrOXYzine PAMOATE 50 MG CAPSULE (FP) PO PRN (02:44)
[2016-11-02 06:49] VITALS: BP 134/78; PULSE 83; TEMP 97.6
[2016-11-02] MEDS: NICOTINE 21 MG/24 HOURS TOPICAL PATCH TD SCH (10:19)
[2016-11-02] MEDS: amLODIPine BESYLATE 10 MG TABLET (FP) PO SCH (10:19)
[2016-11-02] MEDS: PRENATAL VITAMINS W/ FOLIC ACID TABLET (FP) PO SCH (10:19)
== END 2016-11-02 14:00 | disposition left against medical advice (07) | DRG 894 ==
LOC: YASAS 12:37 → Y3W 12:39
PROVIDERS: ADMIT Psychiatry & Neurology Psychiatry; ATTEND Psychiatry & Neurology Psychiatry
PROC: HZ42ZZZ Group Counseling for Substance Abuse Treatment, Cognitive-Behavioral (ICD-10-PCS; principal; 2016-10-30)
DX: F11.20 Opioid dependence, uncomplicated (principal); F19.282 Other psychoactive substance dependence with psychoactive substance-induced sleep disorder; F10.20 Alcohol dependence, uncomplicated; F17.210 Nicotine dependence, cigarettes, uncomplicated; F19.24 Other psychoactive substance dependence with psychoactive substance-induced mood disorder; I10 Essential (primary) hypertension; R76.11 Nonspecific reaction to tuberculin skin test without active tuberculosis

== ENCOUNTER 2017-10-10 12:18 | Inpatient (IN) | payer OTHER ==
[2017-10-10 15:28] VITALS: BMI 27.1
--- NOTE | 2017-10-10 17:31 | HP ---
COWS - Scale Resting Pulse: 0= [place] 80 or Below Sweatin=Flushed/Facial Moisture Restless Observation: 1= Difficult to Sit Still Pupil Size: 0= Normal to Room Light Bone or Joint Aches: 2= Severe Diffuse Aches Runny Nose/ Eye Tearin= Runny Nose/Eyes GI Upset > 30mins: 2= Nausea/Diarrhea Tremor Observation: 1= Tremor [place], Not Seen Yawning Observation: 1= 1-2x During Session Anxiety or Irritability: 1=Feels Anxious/Irritable Goose Flesh Skin: 0=Smooth Skin COWS Score: 12 Admission [facility] Chief Complaint: Heroin withdrawal symptoms. Allergies/Adverse Reactions: Allergies Allergy/AdvReac Type Severity Reaction Status Date / Time No Known Allergies Allergy Verified 10/10/17 16:18 History of Present Illness: Patient present with Heroin withdrawal symptoms. Has attempted detox in past. Last time in 10/2016 at [facility]. Patient reports drinking socially but uses heroin on a daily basis. Pt started using heroin at age 50. Snorts up to 10 bags daily. Last time he used was this morning. Has hx of depression and HTN. Denies history of overdose. Denies SI/HI and suicide attempts. Exam Limitations: No Limitations - Ebola screening Have you traveled outside of the country in the last 21 days: No Have you had contact with anyone from an Ebola affected area: No Have you been sick,other than usual withdrawal symptoms: No Do you have a fever: No - Review of Systems Constitutional: Chills, Night Sweats, Changes in sleep, Unintentional Wgt. Loss EENT: reports: Blurred Vision, Nose Congestion Respiratory: reports: Wheezing Cardiac: reports: No Symptoms Reported GI: reports: Diarrhea, Nausea, Poor Fluid Intake, Abdominal cramping : reports: No Symptoms Reported Musculoskeletal: reports: Back Pain, Muscle Pain Integumentary: reports: Sweating Neuro: reports: Headache, Tremors Endocrine: reports: No Symptoms Reported Hematology: reports: No Symptoms Reported Psychiatric: reports: Orientated x3, Anxious, Depressed Patient History - Patient Medical History Hx Anemia: No Hx Asthma: No Hx Chronic Obstructive Pulmonary Disease (COPD): Yes Hx Cancer: No Hx Cardiac Disorders: No Hx Congestive Heart Failure: No Hx Hypertension: Yes Hx Hypercholesterolemia: No Hx Pacemaker: No HX Cerebrovascular Accident: No Hx Seizures: No Hx Dementia: No Hx Diabetes: No Hx Gastrointestinal Disorders: No Hx Liver Disease: No Hx Genitourinary Disorders: No Hx Sexually Transmitted Disorders: No Hx Renal Disease (ESRD): No Hx Thyroid Disease: No Hx Human Immunodeficiency Virus (HIV): No Hx Hepatitis C: No Hx Depression: Yes Hx Suicide Attempt: No Hx Bipolar Disorder: No Hx Schizophrenia: No - Patient Surgical History Past Surgical History: Yes Hx Neurologic Surgery: No Hx Cataract Extraction: No Hx Cardiac Surgery: No Hx Lung Surgery: No Hx Breast Surgery: No Hx Breast Biopsy: No Hx Abdominal Surgery: No Hx Appendectomy: No Hx Cholecystectomy: No Hx Genitourinary Surgery: No Hx Section: No Hx Orthopedic Surgery: No Other Surgical History: hemorroidectomy Anesthesia Reaction: No - PPD History Previous Implant?: Yes Documented Results: Positive w/proof PPD to be Administered?: No - Smoking Cessation Smoking history: Current every day smoker Have you smoked in the past 12 months: Yes Aproximately how many cigarettes per day: 10 Cigars Per Day: 0 Hx Chewing Tobacco Use: No Initiated information on smoking cessation: Yes 'Breaking Loose' booklet given: 10/10/17 - Substance & Tx. History Hx Alcohol Use: Yes (no recent daily use) Hx Substance Use: Yes Substance Use Type: Heroin Hx Substance Use Treatment: Yes - Substances Abused Heroin Route: Inhalation Frequency: Daily Amount used: 10 BAGS Age of first use: 50 Date of Last Use: 10/10/17 Family Disease History - Family Disease History Family Disease History: Heart Disease: Father (HTN,ALCOHOL) Admission Physical Exam [facility] - Vital Signs Vital Signs: Vital Signs - 24 hr 10/10/17 15:27 Temperature 98.2 F Pulse Rate 76 Respiratory 20 Rate Blood Pressure 150/103 - Physical General Appearance: Yes: No Apparent Distress, Sweating, Anxious HEENTM: Yes: Within Normal Limits, EOMI, Hearing grossly Normal, Normal ENT Inspection, Normocephalic, Normal Voice, ERIC, Pharynx Normal Respiratory: Yes: Within Normal Limits, Chest Non-Tender, Wheezing Neck: Yes: Supple, Trachea in good position Breast: Yes: Breast Exam Deferred Cardiology: Yes: Regular Rhythm, Regular Rate, S1, S2 Abdominal: Yes: Normal Bowel Sounds, Non Tender, Flat, Soft Genitourinary: Yes: Within Normal Limits Back: Yes: Normal Inspection, Muscle Spasm Musculoskeletal: Yes: Gait Steady, Back pain, Muscle Pain Extremities: Yes: Within Normal Limits, Tremors Neurological: Yes: customer advisor specialist II-XII NML intact, Fully Oriented, Alert, Depressed Affect Integumentary: Yes: Normal Color, Warm, Moist Lymphatic: Yes: Within Normal Limits - Diagnostic (1) COPD (chronic obstructive pulmonary disease) Current Visit: Yes Status: Chronic Qualifiers: Chronic bronchitis type: unspecified (2) Depressed affect Current Visit: Yes Status: Acute (3) Opioid dependence with withdrawal Current Visit: No Status: Acute (4) PPD positive Current Visit: Yes Status: Chronic (5) HTN (hypertension) Current Visit: Yes Status: Chronic Cleared for Admission S - Detox or Rehab [facility] Level of Care: Medically Managed Detox Regimen/Protocol: Methadone S Breath Alcohol Content Breath Alcohol Content: 0 Urine Drug Screen - Results Drug Screen Negative: No Urine Drug Screen Results: OPI-Opiates
[2017-10-10] MEDS ORDERED: MAG HYDROX/AL HYDROX/SIMETH 30 ML UNIT-DOSE CUP PO PRN (17:41)
[2017-10-10] MEDS ORDERED: IBUPROFEN 400 MG TABLET (FP) PO PRN (17:41)
[2017-10-10] MEDS ORDERED: guaiFENesin/D-METHORPHAN HB 10 ML UNIT-DOSE CUPS PO PRN (17:41)
[2017-10-10] MEDS ORDERED: MAGNESIUM CITRATE 300 ML BOTTLE PO PRN (17:41)
[2017-10-10] MEDS ORDERED: LOPERAMIDE HCL 2 MG CAPSULE PO PRN (17:41)
[2017-10-10] MEDS ORDERED: MENTHOL/PHENOL 1 EACH UD MM PRN (17:41)
[2017-10-10] MEDS ORDERED: MAGNESIUM HYDROX 2400MG/30ML ORAL SUSPENSION 30 ML CUP PO PRN (17:41)
[2017-10-10] MEDS ORDERED: P-EPHED 60MG/TRIPROLIDI 2.5MG TABLET PO PRN (17:41)
[2017-10-10] MEDS ORDERED: ACETAMINOPHEN 325 MG TABLET (FP) PO PRN (17:41)
[2017-10-10] MEDS ORDERED: hydrOXYzine PAMOATE 50 MG CAPSULE (FP) PO PRN (17:41)
[2017-10-10] MEDS ORDERED: METHADONE HCL 10 MG TABLET (FOR DETOX USE ONLY) PO ONE ×2 (17:44→23:00)
[2017-10-10] MEDS ORDERED: diazePAM 5 MG TABLET PO PRN (17:44)
[2017-10-10] MEDS ORDERED: ALBUTEROL SO4 18 GM HFA INHALER IH PRN (17:44)
[2017-10-10] MEDS ORDERED: cloNIDine HCL 0.1 MG TABLET PO ONE (18:26)
[2017-10-10] MEDS ORDERED: MELATONIN 5 MG TABLETS PO PRN (22:00)
[2017-10-10] MEDS ORDERED: THIAMINE HCL 100 MG TABLET (FP) PO SCH (22:00)
[2017-10-10 23:12] LABS: URINE APPEARANCE CLEAR; URINE BILIRUBIN NEGATIVE (<2.0 mg/dL); URINE BLOOD NEGATIVE (NEGATIVE); URINE COLOR YELLOW; URINE GLUCOSE (UA) NEGATIVE (NEGATIVE); URINE KETONE NEGATIVE (NEGATIVE); URINE LEUK ESTERASE NEGATIVE (NEGATIVE); URINE NITRITE NEGATIVE (NEGATIVE); URINE PROTEIN NEGATIVE (NEGATIVE)
[2017-10-11] MEDS ORDERED: cloNIDine HCL 0.1 MG TABLET PO PRN (07:02)
[2017-10-11 09:56] LABS: HEMATOCRIT 38.2 % (35.4-49); HEMOGLOBIN 12.7 GM/dL (11.7-16.9); MCH 29.3 pg (25.7-33.7); MCHC 33.3 g/dl (32.0-35.9); MEAN CELL VOLUME 88.2 fl (80-96); MEAN PLT VOLUME 7.6 fl (7.5-11.1); PLATELET COUNT 201 K/MM3 (134-434); RBC 4.33 M/mm3 (4.00-5.60); RDW 12.4 % (11.9-15.9); WHITE BLOOD COUNT 6.2 K/mm3 (4.0-10.0)
[2017-10-11] MEDS ORDERED: LISINOPRIL 20 MG TABLET (FP) PO SCH (10:00)
[2017-10-11] MEDS ORDERED: PRENATAL VITAMINS W/ FOLIC ACID TABLET (FP) PO SCH (10:00)
[2017-10-11] MEDS ORDERED: LISINOPRIL 10 MG TABLET (FP) PO SCH (10:00)
[2017-10-11] MEDS ORDERED: HYDROCHLOROTHIAZIDE 12.5 MG CAPSULE (FP) PO SCH (10:00)
[2017-10-11] MEDS ORDERED: METHADONE HCL 10 MG TABLET (FOR DETOX USE ONLY) PO ONE (10:00)
[2017-10-11] MEDS ORDERED: amLODIPine BESYLATE 10 MG TABLET (FP) PO SCH (10:00)
--- NOTE | 2017-10-11 10:55 | PN ---
[facility] COWS - Scale Resting Pulse: 0= [place] 80 or Below Sweatin= Chills/Flushing Restless Observation: 3= Extraneous Movement Pupil Size: 0= Normal to Room Light Bone or Joint Aches: 4=Acute Joint/Muscle Pain Runny Nose/ Eye Tearin= Runny Nose/Eyes GI Upset > 30mins: 0= None Tremor Observation of Outstretched Hands: 1= Tremor [place], Not Seen Yawning Observation: 1= 1-2x During Session Anxiety or Irritability: 2=Irritable/Anxious Goose Flesh Skin: 0=Smooth Skin COWS Score: 14 S Progress Note (SOAP) Subjective: ANXIETY,IRRITABILITY,RUNNY NOSE. Objective: 10/11/17 10:54 Vital Signs Temperature 98.6 F 10/11/17 09:20 Pulse Rate 60 10/11/17 09:20 Respiratory Rate 18 10/11/17 09:20 Blood Pressure 168/85 10/11/17 09:20 O2 Sat by Pulse Oximetry (%) Laboratory Last Values WBC 6.2 K/mm3 (4.0-10.0) 10/11/17 07:00 RBC 4.33 M/mm3 (4.00-5.60) 10/11/17 07:00 Hgb 12.7 GM/dL (11.7-16.9) 10/11/17 07:00 Hct 38.2 % (35.4-49) 10/11/17 07:00 MCV 88.2 fl (80-96) 10/11/17 07:00 MCH 29.3 pg (25.7-33.7) 10/11/17 07:00 MCHC 33.3 g/dl (32.0-35.9) 10/11/17 07:00 RDW 12.4 % (11.9-15.9) 10/11/17 07:00 Plt Count 201 K/MM3 (134-434) 10/11/17 07:00 MPV 7.6 fl (7.5-11.1) 10/11/17 07:00 Urine Color Yellow 10/10/17 23:00 Urine Appearance Clear 10/10/17 23:00 Urine pH 7.0 (5.0-8.0) 10/10/17 23:00 Ur Specific [place] 1.020 (1.001-1.035) 10/10/17 23:00 Urine Protein Negative (NEGATIVE) 10/10/17 23:00 Urine Glucose (UA) Negative (NEGATIVE) 10/10/17 23:00 Urine Ketones Negative (NEGATIVE) 10/10/17 23:00 Urine Blood Negative (NEGATIVE) 10/10/17 23:00 Urine Nitrite Negative (NEGATIVE) 10/10/17 23:00 Urine Bilirubin Negative (<2.0 mg/dL) 10/10/17 23:00 Urine Urobilinogen 2.0 mg/dL (0.2-1.0) 10/10/17 23:00 Ur Leukocyte Esterase Negative (NEGATIVE) 10/10/17 23:00 OTHER LABS PENDING Assessment: 10/11/17 10:55 WITHDRAWAL SX Plan: CONTINUE DETOX INCREASE PO FLUIDS.
[2017-10-11 11:08] LABS: CHLORIDE 102 mmol/L (98-107); POTASSIUM 3.8 mmol/L (3.5-5.1); SODIUM 142 mmol/L (136-145)
[2017-10-11 11:18] LABS: ALBUMIN 3.6 g/dl (3.4-5.0); ALK PHOS 124 U/L (45-117); ANION GAP 8 (8-16); BLOOD UREA NITROGEN 13 mg/dL (7-18); CALCIUM 9.3 mg/dL (8.5-10.1); CO2 32 mmol/L (21-32); CREATININE 0.7 mg/dL (0.7-1.3); GLUCOSE,RANDOM 99 mg/dL (74-106); SGOT/AST 18 U/L (15-37); SGPT/ALT 24 U/L (12-78); TOT PROT 6.6 g/dl (6.4-8.2)
[2017-10-11 17:21] VITALS: BP 142/87; PULSE 67; TEMP 98.2
--- NOTE | 2017-10-11 17:46 | CONSULT ---
[facility] Psychiatric Consult - Data Date of interview: 10/11/17 Admission source: [facility] Identifying data: Readmission to [facility] for this 72 y/o AA male seeking detox treatment, on , for alcohol and heroin dependence.Patient is ,a father of three,domiciled and currently employed. Substance Abuse History: Confirmed by patient in this interview.Details in current [facility] report.Smoking history: Current every day smoker. Have you smoked in the past 12 months: Yes. Aproximately how many cigarettes per day: 10. Cigars Per Day: 0. Hx Chewing Tobacco Use: No. Initiated information on smoking cessation: Yes. 'Breaking Loose' booklet given: 10/10/17. - Substance & Tx. History. Hx Alcohol Use: Yes (no recent daily use). Hx Substance Use: Yes. Substance Use Type: Heroin. Hx Substance Use Treatment: Yes. - Substances Abused. Heroin. Route: Inhalation. Frequency: Daily. Amount used: 10 BAGS. Age of first use: 50. Date of Last Use: 10/10/17 Medical History: Positive PPD,COPD and hypertension. Psychiatric History: No reported history of psychiatric hospitalizations or suicide attempts.Previously seen a psychiatrist, on an outpatient basis, for the management of insomnia.Mr Wiggins denies history of suicide attempts. Physical/Sexual Abuse/Trauma History: Patient denies. Additional Comment: Urine Drug Screen Results: OPI-Opiates.Noted. Mental Status Exam - Mental Status Exam Alert and Oriented to: Time, Place, Person Cognitive Function: Grossly Intact Patient Appearance: Well Groomed Mood: Withdrawn Affect: Appropriate, Normal Range Patient Behavior: Sedated (mildly sedated), Fatigued Speech Pattern: Clear, Appropriate, Delayed Voice Loudness: Normal Thought Process: Intact, Goal Oriented Thought Disorder: Not Present Hallucinations: Denies Suicidal Ideation: Denies Homicidal Ideation: Denies Insight/Judgement: Fair Sleep: Well Appetite: Good Muscle strength/Tone: Normal (no complaint of rigidity or weakness) Gait/Station: Normal Psychiatric Findings - Problem List ([place] 1, 2,3) (1) Opioid dependence with withdrawal Current Visit: Yes Status: Acute (2) Nicotine dependence Current Visit: Yes Status: Acute Qualifiers: Nicotine product type: cigarettes Substance use status: uncomplicated Qualified Code(s): F17.210 - Nicotine dependence, cigarettes, uncomplicated - Initial Treatment Plan Initial Treatment Plan: Psychoeducation.Sleep hygiene recommended.Detoxification in progress.Observation.Falls precautions.
--- NOTE | 2017-10-11 19:54 | PN ---
[facility] Progress Note Note: Patient requested to leave AMA. Patient was educated on the risk of leaving prior to completing treatment and decided to stay.
--- NOTE | 2017-10-11 23:41 | DS ---
[facility] Detox Discharge Summary Admission Date: 10/10/17 Discharge Date: 10/11/17 - Physical Exam Results Vital Signs: Vital Signs Temperature 98.2 F 10/11/17 17:20 Pulse Rate 67 10/11/17 17:20 Respiratory Rate 18 10/11/17 17:20 Blood Pressure 142/87 10/11/17 17:20 O2 Sat by Pulse Oximetry (%) - Medication Discharge Medications: Ambulatory Orders Quetiapine Fumarate [Seroquel] 25 mg PO HS 10/31/16 Amlodipine Besylate [Norvasc -] 10 mg PO DAILY #30 tab 11/02/16 Hydrochlorothiazide 12.5 mg PO DAILY 10/11/17 Lisinopril 20 mg PO DAILY 10/11/17 - Diagnosis (1) COPD (chronic obstructive pulmonary disease) Status: Chronic Qualifiers: Chronic bronchitis type: unspecified (2) HTN (hypertension) Status: Chronic (3) Opioid dependence with withdrawal Status: Acute (4) Nicotine dependence Status: Acute Qualifiers: Nicotine product type: cigarettes Substance use status: uncomplicated Qualified Code(s): F17.210 - Nicotine dependence, cigarettes, uncomplicated
--- NOTE | 2017-10-12 06:51 | DS ---
[facility] Detox Discharge Summary Admission Date: 10/10/17 Discharge Date: 10/11/17 - History Present History: Opioid Dependence Pertinent Past History: copd htn nicotine dep hx/o +ppd - Physical Exam Results Vital Signs: Vital Signs Temperature 98.2 F 10/11/17 17:20 Pulse Rate 67 10/11/17 17:20 Respiratory Rate 18 10/11/17 17:20 Blood Pressure 142/87 10/11/17 17:20 O2 Sat by Pulse Oximetry (%) Pertinent Admission Physical Exam Findings: withdrawal sx's Laboratory Tests 10/10/17 10/11/17 10/11/17 23:00 07:00 07:00 WBC 6.2 RBC 4.33 Hgb 12.7 Hct 38.2 MCV 88.2 MCH 29.3 MCHC 33.3 RDW 12.4 Plt Count 201 MPV 7.6 Sodium 142 Potassium 3.8 Chloride 102 Carbon Dioxide 32 Anion Gap 8 BUN 13 Creatinine 0.7 D Creat Clearance w eGFR > 60 Random Glucose 99 D Calcium 9.3 Total Bilirubin 1.0 AST 18 D ALT 24 D Alkaline Phosphatase 124 H Total Protein 6.6 Albumin 3.6 Urine Color Yellow Urine Appearance Clear Urine pH 7.0 Ur Specific [place] 1.020 Urine Protein Negative Urine Glucose (UA) Negative Urine Ketones Negative Urine Blood Negative Urine Nitrite Negative Urine Bilirubin Negative Urine Urobilinogen 2.0 Ur Leukocyte Esterase Negative - Treatment Hospital Course: Discharged Condition Good - Medication Discharge Medications: Ambulatory Orders Quetiapine Fumarate [Seroquel] 25 mg PO HS 10/31/16 Amlodipine Besylate [Norvasc -] 10 mg PO DAILY #30 tab 11/02/16 Hydrochlorothiazide 12.5 mg PO DAILY 10/11/17 Lisinopril 20 mg PO DAILY 10/11/17 - AMA Did Patient Leave Against Medical Advice: Yes
--- NOTE | 2017-10-12 06:58 | PN ---
[facility] Progress Note Note: client left ama last night after multiple attempts. he was spoken to by different disciplines. emotional support provided. risks in abrupting txment discussed. client verbalized understanding and insisted on signing out ama. Vital Signs Temperature 98.2 F 10/11/17 17:20 Pulse Rate 67 10/11/17 17:20 Respiratory Rate 18 10/11/17 17:20 Blood Pressure 142/87 10/11/17 17:20 O2 Sat by Pulse Oximetry (%)
--- NOTE | 2017-10-12 09:49 | EKG ---
Test Reason : Blood Pressure : / mmHG Vent. Rate : 061 BPM Atrial Rate : 061 BPM P-R Int : 162 ms QRS Dur : 086 ms QT Int : 406 ms P-R-T Axes : 077 054 -85 degrees QTc Int : 408 ms NORMAL SINUS RHYTHM SEPTAL INFARCT , AGE UNDETERMINED T WAVE ABNORMALITY, CONSIDER INFERIOR ISCHEMIA ABNORMAL ECG WHEN COMPARED WITH ECG OF 26-OCT-2016 08:22, NO SIGNIFICANT CHANGE WAS FOUND Confirmed by CORA GILLILAND MD ([id number]) on 10/12/2017 9:48:38 AM Referred By: Confirmed By:CORA GILLILAND MD
[2017-10-12] MEDS ORDERED: METHADONE HCL 5 MG TABLET (FOR DETOX USE ONLY) PO ONE (10:00)
[2017-10-13] MEDS ORDERED: METHADONE HCL 5 MG TABLET (FOR DETOX USE ONLY) PO ONE (10:00)
[2017-10-14] MEDS ORDERED: METHADONE HCL 10 MG TABLET (FOR DETOX USE ONLY) PO ONE (10:00)
[2017-10-15] MEDS ORDERED: METHADONE HCL 5 MG TABLET (FOR DETOX USE ONLY) PO ONE (06:00)
== END 2017-10-11 20:58 | disposition left against medical advice (07) | DRG 894 ==
LOC: YASAS 12:18 → Y3N 16:43
PROVIDERS: ADMIT Internal Medicine; ATTEND Internal Medicine
PROC: HZ2ZZZZ Detoxification Services for Substance Abuse Treatment (ICD-10-PCS; principal; 2017-10-10)
DX: F11.23 Opioid dependence with withdrawal (principal); F17.210 Nicotine dependence, cigarettes, uncomplicated; F19.24 Other psychoactive substance dependence with psychoactive substance-induced mood disorder; F32.9 Major depressive disorder, single episode, unspecified; I10 Essential (primary) hypertension; J44.9 Chronic obstructive pulmonary disease, unspecified; R76.11 Nonspecific reaction to tuberculin skin test without active tuberculosis
CPT/HCPCS: 36415; 71046-TC-FY; 80053; 81003; 85027; 86593; 93005; 93010; J0735

== ENCOUNTER 2018-01-18 11:29 | Inpatient (IN) | payer OTHER ==
[2018-01-18 14:01] VITALS: BMI 19.4
--- NOTE | 2018-01-18 15:37 | HP ---
COWS - Scale Resting Pulse: 0= [place] 80 or Below Sweatin= Chills/Flushing Restless Observation: 0= Sits Still Pupil Size: 0= Normal to Room Light Bone or Joint Aches: 4=Acute Joint/Muscle Pain Runny Nose/ Eye Tearin= None GI Upset > 30mins: 2= Nausea/Diarrhea (STOMACH CRAMPS) Tremor Observation: 1= Tremor [place], Not Seen Yawning Observation: 2= >3x During Session Anxiety or Irritability: 2=Irritable/Anxious Goose Flesh Skin: 0=Smooth Skin COWS Score: 12 Admission ROS S - HPI Chief Complaint: HEROIN WITHDRAWAL SX Allergies/Adverse Reactions: Allergies Allergy/AdvReac Type Severity Reaction Status Date / Time No Known Allergies Allergy Verified 01/18/18 14:40 History of Present Illness: 72 Y/O A/MALE WITH A HX OF HEROIN DEPENDENCE SEEKING DETOX TX. PT HAS PREVIOUS TX EPISODES. PT REPORTS 2 YEARS OF SOBRIETY IN AN INSTITUTION. Exam Limitations: No Limitations - Ebola screening Have you traveled outside of the country in the last 21 days: No Have you had contact with anyone from an Ebola affected area: No Have you been sick,other than usual withdrawal symptoms: No Do you have a fever: No - Review of Systems Constitutional: Chills, Night Sweats, Changes in sleep EENT: reports: Nose Congestion, Dental Problems (MISSING TEETH AND UPPER DENTURES) Respiratory: reports: Cough (UNPRODUCTIVE) Cardiac: reports: No Symptoms Reported GI: reports: Diarrhea, Nausea, Poor Fluid Intake, Vomiting, Abdominal cramping : reports: No Symptoms Reported Musculoskeletal: reports: Muscle Pain Integumentary: reports: No Symptoms Reported Neuro: reports: Headache Endocrine: reports: No Symptoms Reported Hematology: reports: No Symptoms Reported Psychiatric: reports: Orientated x3, Anxious, Depressed Other Systems: Reviewed and Negative Patient History - Patient Medical History Hx Anemia: No Hx Asthma: No Hx Chronic Obstructive Pulmonary Disease (COPD): No Hx Cancer: No Hx Cardiac Disorders: No Hx Congestive Heart Failure: No Hx Hypertension: Yes ( ON LISINOPRIL AND HYDROCHLOROTHIAZIDE) Hx Hypercholesterolemia: No (DENIES) Hx Pacemaker: No HX Cerebrovascular Accident: No Hx Seizures: No Hx Dementia: No Hx Diabetes: No Hx Gastrointestinal Disorders: No Hx Liver Disease: No Hx Genitourinary Disorders: No Hx Sexually Transmitted Disorders: Yes (TREATED FOR GONORRHEA IN THE PAST) Hx Renal Disease (ESRD): No Hx Thyroid Disease: No Hx Human Immunodeficiency Virus (HIV): No (NEGATIVE HX) Hx Hepatitis C: No Hx Depression: Yes (NO MEDS) Hx Suicide Attempt: No (DNIES S/I) Hx Bipolar Disorder: No Hx Schizophrenia: No - Patient Surgical History Past Surgical History: Yes Hx Neurologic Surgery: No Hx Cataract Extraction: No Hx Cardiac Surgery: No Hx Lung Surgery: No Hx Breast Surgery: No Hx Breast Biopsy: No Hx Abdominal Surgery: No Hx Appendectomy: No Hx Cholecystectomy: No Hx Genitourinary Surgery: No Hx Orthopedic Surgery: No Other Surgical History: hemorroidectomy Anesthesia Reaction: No - PPD History Previous Implant?: Yes Documented Results: Positive w/o proof Implanted On Prior [facility] Admission?: No PPD to be Administered?: No - Reproductive History Patient is a Female of Child Bearing Age (11 -55 yrs old): No (MALE) - Smoking Cessation Smoking history: Current every day smoker Have you smoked in the past 12 months: Yes Aproximately how many cigarettes per day: 10 Cigars Per Day: 0 Hx Chewing Tobacco Use: No Initiated information on smoking cessation: Yes 'Breaking Loose' booklet given: 01/18/18 - Substance & Tx. History Hx Alcohol Use: No Hx Substance Use: Yes (HEROIN) Substance Use Type: Heroin Hx Substance Use [facility]: Yes ([facility] - Substances Abused Heroin Route: Inhalation Frequency: Daily Amount used: 5-8 bags Age of first use: 55 Date of Last Use: 01/17/18 Family Disease History - Family Disease History Family Disease History: Heart Disease: Father (HTN,ALCOHOL) Admission Physical Exam [facility] - Vital Signs Vital Signs: Vital Signs - 24 hr 01/18/18 13:58 Temperature 97 F L Pulse Rate 69 Respiratory 20 Rate Blood Pressure 181/114 - Physical General Appearance: Yes: Moderate Distress, Irritable, Anxious HEENTM: Yes: EOMI, Normocephalic, ERIC, Pharynx Normal, Nasal Congestion, Rhinorrhea Respiratory: Yes: Chest Non-Tender, Lungs Clear, Normal Breath Sounds, No Respiratory Distress Neck: Yes: No masses,lesions,Nodules, Supple, Trachea in good position Breast: Yes: Breast Exam Deferred Cardiology: Yes: Regular Rhythm, Regular Rate, S1, S2 Abdominal: Yes: Normal Bowel Sounds, Non Tender, Flat Genitourinary: Yes: Other (N/C) Musculoskeletal: Yes: full range of Motion, Gait Steady Extremities: Yes: Normal Range of Motion, Non-Tender 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, Fully Oriented, Alert, Motor Strength 5/5 Integumentary: Yes: Dry, Warm, Other (MULTIPLE HEALED SCARS ON LOWER EXTREMITIES.) Lymphatic: Yes: Within Normal Limits - Diagnostic (1) Nicotine dependence Current Visit: Yes Status: Acute Qualifiers: Nicotine product type: cigarettes Substance use status: in withdrawal Qualified Code(s): F17.213 - Nicotine dependence, cigarettes, with withdrawal (2) Opioid dependence with withdrawal Current Visit: Yes Status: Acute (3) COPD (chronic obstructive pulmonary disease) Current Visit: Yes Status: Chronic Qualifiers: Chronic bronchitis type: unspecified (4) HTN (hypertension) Current Visit: Yes Status: Chronic (5) PPD positive Current Visit: Yes Status: Chronic Cleared for Admission S - Detox or Rehab [facility] Level of Care: Medically Managed Detox Regimen/Protocol: Methadone [facility] Breath Alcohol Content Breath Alcohol Content: 0 Urine Drug Screen - Results Drug Screen Negative: No Urine Drug Screen Results: OPI-Opiates
[2018-01-18] MEDS ORDERED: NICOTINE POLACRILEX 2 MG GUM BC PRN (15:49)
[2018-01-18] MEDS ORDERED: MAG HYDROX/AL HYDROX/SIMETH 30 ML UNIT-DOSE CUP PO PRN (15:49)
[2018-01-18] MEDS ORDERED: diazePAM 5 MG TABLET PO PRN (15:49)
[2018-01-18] MEDS ORDERED: MENTHOL/PHENOL 1 EACH UD MM PRN (15:49)
[2018-01-18] MEDS ORDERED: ACETAMINOPHEN 325 MG TABLET (FP) PO PRN (15:49)
[2018-01-18] MEDS ORDERED: P-EPHED 60MG/TRIPROLIDI 2.5MG TABLET PO PRN (15:49)
[2018-01-18] MEDS ORDERED: MAGNESIUM HYDROX 2400MG/30ML ORAL SUSPENSION 30 ML CUP PO PRN (15:49)
[2018-01-18] MEDS ORDERED: guaiFENesin/D-METHORPHAN HB 10 ML UNIT-DOSE CUPS PO PRN (15:49)
[2018-01-18] MEDS ORDERED: MAGNESIUM CITRATE 300 ML BOTTLE PO PRN (15:49)
[2018-01-18] MEDS ORDERED: IBUPROFEN 400 MG TABLET (FP) PO PRN (15:49)
[2018-01-18] MEDS ORDERED: LOPERAMIDE HCL 2 MG CAPSULE PO PRN (15:49)
[2018-01-18] MEDS ORDERED: METHADONE HCL 10 MG TABLET (FOR DETOX USE ONLY) PO ONE ×2 (16:00→23:00)
[2018-01-18] MEDS: HYDROCHLOROTHIAZIDE 12.5 MG CAPSULE (FP) PO SCH (18:02)
[2018-01-18] MEDS: LISINOPRIL 20 MG TABLET (FP) PO SCH (18:03)
[2018-01-18] MEDS: NICOTINE 14 MG/24 HOURS TOPICAL PATCH TD SCH (18:03)
--- NOTE | 2018-01-18 21:44 | PN ---
S Progress Note Note: Vital Signs Temperature 98.2 F 01/18/18 17:53 Pulse Rate 72 01/18/18 17:53 Respiratory Rate 18 01/18/18 17:53 Blood Pressure 191/107 01/18/18 17:53 O2 Sat by Pulse Oximetry (%) Second BP reading reported by CARLOS Serrano 205/132 asymptomatic Clonidine 0.2 mg stat increase fluids repeat BP 15 minutes continue to monitor
[2018-01-18] MEDS ORDERED: MELATONIN 5 MG TABLETS PO PRN (22:00)
[2018-01-18] MEDS ORDERED: THIAMINE HCL 100 MG TABLET (FP) PO SCH (22:00)
[2018-01-18] MEDS ORDERED: cloNIDine HCL 0.1 MG TABLET PO ONE (22:00)
[2018-01-19 02:19] LABS: URINE APPEARANCE CLEAR; URINE BILIRUBIN NEGATIVE (<2.0 mg/dL); URINE COLOR YELLOW; URINE GLUCOSE (UA) NEGATIVE (NEGATIVE); URINE KETONE NEGATIVE (NEGATIVE); URINE LEUK ESTERASE NEGATIVE (NEGATIVE); URINE NITRITE NEGATIVE (NEGATIVE); URINE PROTEIN NEGATIVE (NEGATIVE); URINE UROBILINOGEN NEGATIVE mg/dL (0.2-1.0)
[2018-01-19] MEDS ORDERED: cloNIDine HCL 0.1 MG TABLET PO ONE (07:01)
--- NOTE | 2018-01-19 07:21 | PN ---
[facility] Progress Note Note: Patient's blood pressure is B/P 170/107. Patient is asymptomatic Vital Signs Temperature 97.9 F 01/19/18 07:10 Pulse Rate 66 01/19/18 07:10 Respiratory Rate 18 01/19/18 07:10 Blood Pressure 170/107 01/19/18 07:10 O2 Sat by Pulse Oximetry (%) Action: Clonidine 0.1mg tablet oral ordered
[2018-01-19] MEDS ORDERED: CYCLOBENZAPRINE HCL 5 MG TABLET PO PRN (08:37)
--- NOTE | 2018-01-19 09:00 | CONSULT ---
[facility] Psychiatric Consult - Data Date of interview: 01/19/18 Admission source: [facility] Identifying data: This is a 72 years old male, father of three, living with roommate, on PS and SSI support, with long history of Heroin, Cannabis and Nicotine dependence. Patient reports withdrawal symptoms and seeking for detox. Substance Abuse History: Smoking history: Current every day smoker. Have you smoked in the past 12 months: Yes. Aproximately how many cigarettes per day: 10. Cigars Per Day: 0. Hx Chewing Tobacco Use: No. Initiated information on smoking cessation: Yes. 'Breaking Loose' booklet given: 01/18/18. - Substance & Tx. History. Hx Alcohol Use: No. Hx Substance Use: Yes (HEROIN). Substance Use Type: Heroin. Hx Substance Use Treatment: Yes (LAST AT [facility]). - Substances Abused. Heroin. Route: Inhalation. Frequency: Daily. Amount used: 5-8 bags. Age of first use: 55. Date of Last Use: 01/17/18 Medical History: COPD, HTN, PPD+ Hisotory Psychiatric History: Patient reports history of anxiety and depression, reports no psychiatric hospitalization history, reports no medications taking prior to admission. Denies suicidal and homicidal history. Physical/Sexual Abuse/Trauma History: Denies Additional Comment: Observation. Detox Unit Care Protocol Mental Status Exam - Mental Status Exam Alert and Oriented to: Person Cognitive Function: Fair Patient Appearance: Unkempt Mood: Sad Affect: Flat Patient Behavior: Sedated Speech Pattern: Delayed Voice Loudness: Mildly Soft/Quiet Thought Process: Circumstantial, Goal Oriented Thought Disorder: Being Controlled Hallucinations: Denies Suicidal Ideation: Denies Homicidal Ideation: Denies Insight/Judgement: Fair Sleep: Difficulty falling asleep Appetite: Weight loss Muscle strength/Tone: Mild Hypotonicity Gait/Station: Shuffling Additional Comments: Observation. Detox Unit Care Protocol Psychiatric Findings - Problem List ([place] 1, 2,3) (1) Nicotine dependence Current Visit: Yes Status: Acute Qualifiers: Nicotine product type: cigarettes Substance use status: in withdrawal Qualified Code(s): F17.213 - Nicotine dependence, cigarettes, with withdrawal (2) Opioid dependence with withdrawal Current Visit: Yes Status: Acute (3) COPD (chronic obstructive pulmonary disease) Current Visit: Yes Status: Chronic Qualifiers: Chronic bronchitis type: unspecified (4) HTN (hypertension) Current Visit: Yes Status: Chronic (5) Alcohol abuse Current Visit: No Status: Acute (6) Alcohol dependence Current Visit: No Status: Acute Qualifiers: Substance use status: in withdrawal Complication of substance-induced condition: uncomplicated Qualified Code(s): F10.230 - Alcohol dependence with withdrawal, uncomplicated (7) Cannabis abuse Current Visit: No Status: Acute (8) Opioid dependence Current Visit: No Status: Acute (9) Substance induced mood disorder Current Visit: No Status: Acute (10) Substance or medication-induced sleep disorder, insomnia type Current Visit: No Status: Acute - Initial Treatment Plan Initial Treatment Plan: Observation. Detox Unit Care Protocol
--- NOTE | 2018-01-19 09:31 | PN ---
BHS COWS - Scale Resting Pulse: 0= [place] 80 or Below Sweatin= Chills/Flushing Restless Observation: 3= Extraneous Movement Pupil Size: 1= Pupils >than Normal Bone or Joint Aches: 2= Severe Diffuse Aches Runny Nose/ Eye Tearin= Runny Nose/Eyes GI Upset > 30mins: 2= Nausea/Diarrhea Tremor Observation of Outstretched Hands: 2= Slight Tremor Visible Yawning Observation: 1= 1-2x During Session Anxiety or Irritability: 2=Irritable/Anxious Goose Flesh Skin: 0=Smooth Skin COWS Score: 16 BHS Progress Note (SOAP) Subjective: alert,irritable,anxious,interrupted sleep,tremor,pain in the body and back Objective: 01/19/18 09:28 Vital Signs Temperature 97.9 F 01/19/18 07:10 Pulse Rate 69 01/19/18 07:35 Respiratory Rate 18 01/19/18 07:35 Blood Pressure 151/88 01/19/18 07:35 O2 Sat by Pulse Oximetry (%) ekg inveted t in 2,3,avf v5v6 qt/qtc 388/419 no chest pain,no sob,no dizziness Laboratory Last Values Urine Color Yellow 01/19/18 00:01 Urine Appearance Clear 01/19/18 00:01 Urine pH 7.0 (5.0-8.0) 01/19/18 00:01 Ur Specific [place] 1.020 (1.001-1.035) 01/19/18 00:01 Urine Protein Negative (NEGATIVE) 01/19/18 00:01 Urine Glucose (UA) Negative (NEGATIVE) 01/19/18 00:01 Urine Ketones Negative (NEGATIVE) 01/19/18 00:01 Urine Blood Negative (NEGATIVE) 01/19/18 00:01 Urine Nitrite Negative (NEGATIVE) 01/19/18 00:01 Urine Bilirubin Negative (<2.0 mg/dL) 01/19/18 00:01 Urine Urobilinogen Negative mg/dL (0.2-1.0) 01/19/18 00:01 Ur Leukocyte Esterase Negative (NEGATIVE) 01/19/18 00:01 labs pending Assessment: 01/19/18 09:31 withdrawal symptom Plan: continue detox
--- NOTE | 2018-01-19 09:44 | PN ---
[facility] Progress Note Note: repeat ekg showed st depression in v3 to v6 denied chest pain,no dizziness,no sob patient will be transferred to [facility] er for evaluation for ischemic change in ekg
[2018-01-19] MEDS ORDERED: PRENATAL VITAMINS W/ FOLIC ACID TABLET (FP) PO SCH (10:00)
[2018-01-19] MEDS ORDERED: METHADONE HCL 10 MG TABLET (FOR DETOX USE ONLY) PO ONE (10:00)
--- NOTE | 2018-01-19 10:16 | PN ---
S Progress Note Note: patient refused to go to er for evaluation for abnormal ekg st depression from v4 to v6 the risk explained to patient including loss of life,sudden ,patient understood, signed refusal of treatment
[2018-01-19 10:33] VITALS: TEMP 97.5
[2018-01-19 10:35] LABS: HEMATOCRIT 40.9 % (35.4-49); HEMOGLOBIN 13.5 GM/dL (11.7-16.9); MCH 29.3 pg (25.7-33.7); MCHC 32.9 g/dl (32.0-35.9); MEAN CELL VOLUME 89.1 fl (80-96); MEAN PLT VOLUME 8.7 fl (7.5-11.1); PLATELET COUNT 231 K/MM3 (134-434); RDW 12.7 % (11.9-15.9); WHITE BLOOD COUNT 7.2 K/mm3 (4.0-10.0)
[2018-01-19 11:11] LABS: CHLORIDE 103 mmol/L (98-107); POTASSIUM 3.8 mmol/L (3.5-5.1); SODIUM 143 mmol/L (136-145)
[2018-01-19 11:40] LABS: ALK PHOS 141 U/L (45-117); ANION GAP 11 (8-16); BILIRUBIN,TOTAL 1.2 mg/dL (0.2-1.0); BLOOD UREA NITROGEN 16 mg/dL (7-18); CALCIUM 9.1 mg/dL (8.5-10.1); CO2 29 mmol/L (21-32); CREATININE 0.9 mg/dL (0.7-1.3); GLUCOSE,RANDOM 162 mg/dL (74-106); SGOT/AST 17 U/L (15-37); SGPT/ALT 21 U/L (12-78); TOT PROT 7.3 g/dl (6.4-8.2)
[2018-01-19] MEDS: LISINOPRIL 20 MG TABLET (FP) PO SCH (11:58)
[2018-01-19] MEDS: HYDROCHLOROTHIAZIDE 12.5 MG CAPSULE (FP) PO SCH (11:58)
[2018-01-19] MEDS: NICOTINE 14 MG/24 HOURS TOPICAL PATCH TD SCH (11:58)
--- NOTE | 2018-01-19 12:52 | PN ---
[facility] Progress Note Note: patient did not want to complete treatment due to personal issue,all attempts to convince patient to stay with no avail, seen by counselor and miss Desai clinical care supervisor [employer], patient refused to go to er earlier for abnormal ekg st depression st depression in v3 to v3 patient signed release ama risks of leaving hospital explained ,risk of sudden and loss of life explained,patient understood, stated he has his primary care provider,and just saw his provider 2 weeks ago, the risk of withdrawal,relapsing also explained to patient advise to see his primary care provider as soon as possible to go to nearest emergency room if emergency medical problem arrangement for transportation to bring patient home patient denied chest pain,no sob,no dizziness stated he is feeling all right vital sign at 12.45 pm bp 160/86,p65,r 20,t 97.9
--- NOTE | 2018-01-19 12:56 | DS ---
[facility] Detox Discharge Summary Admission Date: 01/18/18 Discharge Date: 01/19/18 - History Present History: Opioid Dependence Additional Comments: patient left ama Pertinent Past History: hypertension copd nicotine dependence - Physical Exam Results Vital Signs: Vital Signs Temperature 97.5 F L 01/19/18 10:31 Pulse Rate 72 01/19/18 10:31 Respiratory Rate 20 01/19/18 10:31 Blood Pressure 159/103 01/19/18 10:31 O2 Sat by Pulse Oximetry (%) Pertinent Admission Physical Exam Findings: withdrawal signs and symptom Vital Signs Temperature 97.5 F L 01/19/18 10:31 Pulse Rate 72 01/19/18 10:31 Respiratory Rate 20 01/19/18 10:31 Blood Pressure 159/103 01/19/18 10:31 O2 Sat by Pulse Oximetry (%) 01/19/18 01/19/18 06:00 06:00 WBC 7.2 RBC 4.60 Hgb 13.5 Hct 40.9 MCV 89.1 MCHC 32.9 RDW 12.7 Plt Count 231 Sodium 143 Potassium 3.8 Chloride 103 Carbon Dioxide 29 Anion Gap 11 BUN 16 Creatinine 0.9 - Medication Discharge Medications: Ambulatory Orders Hydrochlorothiazide 12.5 mg PO DAILY 10/11/17 Lisinopril 20 mg PO DAILY 10/11/17 - Diagnosis (1) Opioid dependence with withdrawal Current Visit: Yes Status: Acute (2) Nicotine dependence Current Visit: Yes Status: Acute Qualifiers: Nicotine product type: cigarettes Substance use status: in withdrawal Qualified Code(s): F17.213 - Nicotine dependence, cigarettes, with withdrawal (3) COPD (chronic obstructive pulmonary disease) Current Visit: Yes Status: Chronic Qualifiers: Chronic bronchitis type: unspecified (4) HTN (hypertension) Current Visit: Yes Status: Chronic (5) PPD positive Current Visit: Yes Status: Chronic (6) Abnormal EKG Current Visit: Yes Status: Acute (7) Coronary artery disease Current Visit: Yes Status: Acute - AMA Did Patient Leave Against Medical Advice: Yes
[2018-01-19 13:47] VITALS: BP 160/86; PULSE 65
--- NOTE | 2018-01-19 16:49 | EKG ---
Test Reason : Blood Pressure : / mmHG Vent. Rate : 072 BPM Atrial Rate : 072 BPM P-R Int : 162 ms QRS Dur : 086 ms QT Int : 376 ms P-R-T Axes : 078 022 -20 degrees QTc Int : 411 ms SINUS RHYTHM WITH PREMATURE ATRIAL COMPLEXES SEPTAL INFARCT (CITED ON OR BEFORE 10-OCT-2017) ABNORMAL ECG WHEN COMPARED WITH ECG OF 18-JAN-2018 17:17, PREMATURE ATRIAL COMPLEXES ARE NOW PRESENT ST NO LONGER ELEVATED IN ANTERIOR LEADS NONSPECIFIC T WAVE ABNORMALITY HAS REPLACED INVERTED T WAVES IN INFERIOR LEADS Confirmed by SLOAN MARQUEZ, EMMANUELLE ([id number]) on 01/19/2018 3:51:17 PM Referred By: Confirmed By:EMMANUELLE LISA MD
--- NOTE | 2018-01-19 16:50 | EKG ---
Test Reason : Blood Pressure : / mmHG Vent. Rate : 070 BPM Atrial Rate : 070 BPM P-R Int : 158 ms QRS Dur : 084 ms QT Int : 388 ms P-R-T Axes : 076 047 -74 degrees QTc Int : 419 ms NORMAL SINUS RHYTHM POSSIBLE LEFT ATRIAL ENLARGEMENT LEFT VENTRICULAR HYPERTROPHY CANNOT RULE OUT SEPTAL INFARCT (CITED ON OR BEFORE 10-OCT-2017) T WAVE ABNORMALITY, CONSIDER INFEROLATERAL ISCHEMIA ABNORMAL ECG WHEN COMPARED WITH ECG OF 10-OCT-2017 18:44, NON-SPECIFIC CHANGE IN ST SEGMENT IN LATERAL LEADS Confirmed by EMMANUELLE LISA MD ([id number]) on 01/19/2018 3:52:21 PM Referred By: Confirmed By:EMMANUELLE LISA MD
[2018-01-20] MEDS ORDERED: METHADONE HCL 5 MG TABLET (FOR DETOX USE ONLY) PO ONE (10:00)
[2018-01-21] MEDS ORDERED: METHADONE HCL 5 MG TABLET (FOR DETOX USE ONLY) PO ONE (10:00)
[2018-01-22] MEDS ORDERED: METHADONE HCL 10 MG TABLET (FOR DETOX USE ONLY) PO ONE (10:00)
[2018-01-23] MEDS ORDERED: METHADONE HCL 5 MG TABLET (FOR DETOX USE ONLY) PO ONE (06:00)
== END 2018-01-19 13:45 | disposition left against medical advice (07) | DRG 894 ==
LOC: YASAS 11:29 → Y6N 15:46
PROVIDERS: ADMIT Surgery; ATTEND Surgery
PROC: HZ2ZZZZ Detoxification Services for Substance Abuse Treatment (ICD-10-PCS; principal; 2018-01-18)
DX: F11.23 Opioid dependence with withdrawal (principal); F19.282 Other psychoactive substance dependence with psychoactive substance-induced sleep disorder; F10.10 Alcohol abuse, uncomplicated; F12.10 Cannabis abuse, uncomplicated; F17.213 Nicotine dependence, cigarettes, with withdrawal; F19.24 Other psychoactive substance dependence with psychoactive substance-induced mood disorder; I10 Essential (primary) hypertension; I25.10 Atherosclerotic heart disease of native coronary artery without angina pectoris; J44.9 Chronic obstructive pulmonary disease, unspecified; R76.11 Nonspecific reaction to tuberculin skin test without active tuberculosis; R94.31 Abnormal electrocardiogram [ECG] [EKG]; Z87.438 Personal history of other diseases of male genital organs
CPT/HCPCS: 36415; 80053; 81003; 85027; 86593; 93005; 93010; J0735

== ENCOUNTER 2018-10-13 14:07 | Inpatient (IN) | payer OTHER ==
[2018-10-13 17:57] VITALS: BMI 20.9
--- NOTE | 2018-10-13 18:26 | HP ---
"COWS - Scale Resting Pulse: 0= [place] 80 or Below Sweatin=Flushed/Facial Moisture Restless Observation: 1= Difficult to Sit Still Pupil Size: 2= Moderately Dilated (Pupils = 4 mm) Bone or Joint Aches: 1= Mild Discomfort Runny Nose/ Eye Tearin= Runny Nose/Eyes GI Upset > 30mins: 2= Nausea/Diarrhea (No diarrhea) Tremor Observation: 2= Slight Tremor Visible Yawning Observation: 0= None Anxiety or Irritability: 1=Feels Anxious/Irritable Goose Flesh Skin: 0=Smooth Skin COWS Score: 13 CIWA Score Nausea/Vomitin-Mild Nausea/No Vomiting Muscle Tremors: 3 Anxiety: 1-Mildly Anxious Agitation: 1-Slight > Activity Paroxysmal Sweats: 3 Orientation: 1-Uncertain about Date Tacttile Disturbances: 0-None Auditory Disturbances: 0-None Visual Disturbances: 0-None Headache: 2-Mild CIWA-Ar Total Score: 12 - Admission Criteria OAS Guidelines: Admission for Medically Managed Detox: Requires at least one of the followin. CIWA greater than 12 2. Seizures within the past 24 hours 3. Delirium tremens within the past 24 hours 4. Hallucinations within the past 24 hours 5. Acute intervention needed for co occurring medical disorder 6. Acute intervention needed for co occurring psychiatric disorder 7. Severe withdrawal that cannot be handled at a lower level of care (continued vomiting, continued diarrhea, abnormal vital signs) requiring intravenous medication and/or fluids 8. Patient presents the following: CIWA greater than 12 Admission Criteria Met: Admission criteria met Admission ROS [facility] Chief Complaint: Here with heroin and alcohol withdrawal. Allergies/Adverse Reactions: Allergies Allergy/AdvReac Type Severity Reaction Status Date / Time No Known Allergies Allergy Verified 10/13/18 17:46 History of Present Illness: 73 y.o.m. alert/oriented. Here for alcohol and heroin detox. Last [facility] admission 01/2018. Current alcohol use 6- 12 oz beers daily. Current Heroin use began at age 63. - 5-6 bags/day. Nasal. States last overdose 10 years ago. PMHx: HTN, Hx: Abnormal EKG - last reviewed 01/11/18. Denies chest pain/SOB. MHHx: Denies MH Meds. Does not see a [place] Provider. Denies thoughts of harming self or others. Search Terms: Domenic Wiggins 1945 Search Date: 10/13/2018 06:22:17 PM The Drug Utilization Report below displays all of the controlled substance prescriptions, if any, that your patient has filled in the last twelve months. The information displayed on this report is compiled from pharmacy submissions to the Department, and accurately reflects the information as submitted by the pharmacies. This report was requested by: Kim Diane | Reference #: [id number] There are no results for the search terms that you entered. Exam Limitations: No Limitations - Ebola screening Have you traveled outside of the country in the last 21 days: No Have you had contact with anyone from an Ebola affected area: No Have you been sick,other than usual withdrawal symptoms: No (Denies recent exposure to measles) Do you have a fever: No - Review of Systems Constitutional: Chills, Changes in sleep (Difficulty falling asleep) EENT: reports: Blurred Vision, Nose Congestion Respiratory: reports: No Symptoms reported Cardiac: reports: No Symptoms Reported GI: reports: Nausea : reports: Burning (States intermittent for years) Musculoskeletal: reports: No Symptoms Reported Integumentary: reports: No Symptoms Reported Neuro: reports: Headache (Mild on inspector watch parts of head) Endocrine: reports: No Symptoms Reported Hematology: reports: No Symptoms Reported Psychiatric: reports: Judgement Intact, Orientated x3 (Missed date by 1 day), Agitated, Anxious, Depressed (Denies MH Meds. Does not see a [facility] Provider. Denies thoughts of harming self or others.) Patient History - Patient Medical History Hx Anemia: No Hx Asthma: No Hx Chronic Obstructive Pulmonary Disease (COPD): No Hx Cancer: No Hx Cardiac Disorders: No Hx Congestive Heart Failure: No Hx Hypertension: Yes ( ON LISINOPRIL AND HYDROCHLOROTHIAZIDE) Hx Hypercholesterolemia: No (DENIES) Hx Pacemaker: No HX Cerebrovascular Accident: No Hx Seizures: No Hx Dementia: No Hx Diabetes: No Hx Gastrointestinal Disorders: No Hx Liver Disease: No Hx Genitourinary Disorders: No Hx Sexually Transmitted Disorders: Yes (TREATED FOR GONORRHEA IN THE PAST) Hx Renal Disease (ESRD): No Hx Thyroid Disease: No Hx Human Immunodeficiency Virus (HIV): No (NEGATIVE HX) Hx Hepatitis C: No Hx Depression: Yes (NO MEDS) Hx Suicide Attempt: No (DNIES S/I) Hx Bipolar Disorder: No Hx Schizophrenia: No - Patient Surgical History Past Surgical History: Yes Hx Neurologic Surgery: No Hx Cataract Extraction: No Hx Cardiac Surgery: No Hx Lung Surgery: No Hx Breast Surgery: No Hx Breast Biopsy: No Hx Abdominal Surgery: No Hx Appendectomy: No Hx Cholecystectomy: No Hx Genitourinary Surgery: No Hx Section: No Hx Orthopedic Surgery: No Other Surgical History: hemorroidectomy Anesthesia Reaction: No - PPD History Documented Results: Positive w/o proof PPD to be Administered?: No - Smoking Cessation Smoking history: Current every day smoker Have you smoked in the past 12 months: Yes Aproximately how many cigarettes per day: 10 Cigars Per Day: 0 Hx Chewing Tobacco Use: No Initiated information on smoking cessation: Yes 'Breaking Loose' booklet given: 10/13/18 - Substance & Tx. History Hx Alcohol Use: Yes Hx Substance Use: Yes Substance Use Type: Alcohol, Heroin Hx Substance Use Treatment: Yes - Substances abused Alcohol Substance route: Oral Frequency: Daily Amount used: LIQUOR- 1, BEER- 1 SIX PACK Age of first use: 15 Date of last use: 10/12/18 Family Disease History - Family Disease History Family Disease History: Heart Disease: Father (HTN,ALCOHOL) Admission Physical Exam BHS - Vital Signs Vital Signs: Vital Signs - 24 hr 10/13/18 10/13/18 17:55 18:06 Temperature 97.0 F L 97.0 F L Pulse Rate 57 L 57 L Respiratory 18 18 Rate Blood Pressure 188/110 H 188/110 H - Physical General Appearance: Yes: Mild Distress, Tremorous, Sweating (Increased facial moisture), Anxious HEENTM: Yes: EOMI, Hearing grossly Normal, Normocephalic, ERIC (Pupils = 4 mm) Respiratory: Yes: Lungs Clear, Normal Breath Sounds, No Respiratory Distress, Other (Last CXR 1 year ago.) Neck: Yes: No masses,lesions,Nodules, Supple Breast: Yes: Breast Exam Deferred Cardiology: Yes: Regular Rhythm, Regular Rate, S1, S2 Abdominal: Yes: Non Tender, Flat, Soft, Increased Bowel Sounds Genitourinary: Yes: Within Normal Limits Back: Yes: Normal Inspection Musculoskeletal: Yes: full range of Motion, Gait Steady, Joint swelling ((R) ankle swelling. FROM. FWB. Pedal pulses (+)) Extremities: Yes: Normal Capillary Refill, Normal Range of Motion, Non-Tender, Tremors (Mild tremors) Neurological: Yes: animal rescuer II-XII NML intact, Alert, Motor Strength 5/5 Integumentary: Yes: Dry (Very dry skin, except for increased facial moisture), Warm Lymphatic: Yes: Within Normal Limits - Diagnostic (1) Alcohol dependence with uncomplicated withdrawal Current Visit: Yes Status: Acute (2) Nicotine dependence Current Visit: Yes Status: Acute Qualifiers: Nicotine product type: cigarettes Substance use status: in withdrawal Qualified Code(s): F17.213 - Nicotine dependence, cigarettes, with withdrawal (3) Opioid dependence with withdrawal Current Visit: Yes Status: Acute (4) HTN (hypertension) Current Visit: Yes Status: Chronic (5) History of positive PPD Current Visit: Yes Status: Chronic (6) History of abnormal electrocardiogram Current Visit: Yes Status: Chronic Cleared for Admission S - Detox or Rehab [facility] Level of Care: Medically Managed Detox Regimen/Protocol: Methadone/Valium Claeared for Rehab Admission: No Breathalyzer - Breathalyzer Breathalyzer: 0 Urine Drug Screen - Test Device Lot number: [id number] Expiration date: 05/12/20 - Control Is test valid?: Yes - Results Drug screen NEGATIVE: No Urine drug screen results: FEN-Fentanyl, MOP-Opiates, MTD-Methadone Inpatient Rehab Admission - Rehab Decision to Admit Inpatient rehab admission?: No"
[2018-10-13] MEDS ORDERED: METHADONE HCL 10 MG TABLET (FOR DETOX USE ONLY) PO ONE ×2 (19:45→23:00)
[2018-10-13] MEDS ORDERED: diazePAM 5 MG TABLET PO PRN (19:45)
[2018-10-13] MEDS ORDERED: MENTHOL/PHENOL 1 EACH UD MM PRN (19:45)
[2018-10-13] MEDS ORDERED: MELATONIN 5 MG TABLETS PO PRN (19:45)
[2018-10-13] MEDS ORDERED: cloNIDine HCL 0.1 MG TABLET PO PRN (19:45)
[2018-10-13] MEDS ORDERED: MAG HYDROX/AL HYDROX/SIMETH 30 ML UNIT-DOSE CUP PO PRN (19:45)
[2018-10-13] MEDS ORDERED: PROCHLORPERAZINE MALEATE 5 MG TABLET PO PRN (19:45)
[2018-10-13] MEDS ORDERED: MAGNESIUM CITRATE 300 ML BOTTLE PO PRN (19:45)
[2018-10-13] MEDS ORDERED: diazePAM 5 MG TABLET PO ONE (19:45)
[2018-10-13] MEDS ORDERED: NICOTINE POLACRILEX 2 MG GUM BUC PRN (19:45)
[2018-10-13] MEDS ORDERED: ACETAMINOPHEN 325 MG TABLET (FP) PO PRN ×2 (19:45)
[2018-10-13] MEDS ORDERED: IBUPROFEN 400 MG TABLET (FP) PO PRN (19:45)
[2018-10-13] MEDS ORDERED: BISMUTH SUBSALICYLATE 524 MG/30 ML UD PO PRN (19:45)
[2018-10-13] MEDS ORDERED: MAGNESIUM HYDROX 2400MG/30ML ORAL SUSPENSION 30 ML CUP PO PRN (19:45)
[2018-10-13] MEDS ORDERED: cloNIDine HCL 0.1 MG TABLET PO ONE (19:49)
[2018-10-13] MEDS: diazePAM 5 MG TABLET PO SCH (22:23)
[2018-10-13] MEDS: THIAMINE HCL 100 MG TABLET (FP) PO SCH (22:23)
[2018-10-14] MEDS: diazePAM 5 MG TABLET PO SCH ×3 (05:10→22:25)
--- NOTE | 2018-10-14 08:26 | EKG ---
Test Reason : Blood Pressure : / mmHG Vent. Rate : 058 BPM Atrial Rate : 058 BPM P-R Int : 158 ms QRS Dur : 080 ms QT Int : 452 ms P-R-T Axes : 081 063 -84 degrees QTc Int : 443 ms POOR DATA QUALITY, INTERPRETATION MAY BE ADVERSELY AFFECTED SINUS BRADYCARDIA POSSIBLE LEFT ATRIAL ENLARGEMENT LEFT VENTRICULAR HYPERTROPHY ANTEROSEPTAL INFARCT (CITED ON OR BEFORE 10-OCT-2017) T WAVE ABNORMALITY, CONSIDER INFERIOR ISCHEMIA ABNORMAL ECG WHEN COMPARED WITH ECG OF 19-JAN-2018 09:29, PREMATURE ATRIAL COMPLEXES ARE NO LONGER PRESENT SERIAL CHANGES OF ANTEROSEPTAL INFARCT PRESENT Confirmed by DARSHANA MARQUEZ, CORA ([id number]) on 10/14/2018 8:25:37 AM Referred By: Confirmed By:CORA GILLILAND MD
[2018-10-14] MEDS ORDERED: NICOTINE 14 MG/24 HOURS TOPICAL PATCH TD SCH (10:00)
[2018-10-14] MEDS ORDERED: METHADONE HCL 5 MG TABLET (FOR DETOX USE ONLY) PO ONE (10:00)
[2018-10-14] MEDS: PRENATAL VITAMINS W/ FOLIC ACID TABLET (FP) PO SCH (10:18)
[2018-10-14] MEDS: LISINOPRIL 20 MG TABLET (FP) PO SCH (10:18)
[2018-10-14] MEDS: HYDROCHLOROTHIAZIDE 12.5 MG CAPSULE (FP) PO SCH (10:18)
[2018-10-14 10:23] LABS: HEMATOCRIT 37.9 % (35.4-49); HEMOGLOBIN 12.3 GM/dL (11.7-16.9); MCH 28.6 pg (25.7-33.7); MCHC 32.6 g/dl (32.0-35.9); MEAN CELL VOLUME 87.7 fl (80-96); MEAN PLT VOLUME 7.9 fl (7.5-11.1); PLATELET COUNT 177 K/MM3 (134-434); RBC 4.31 M/mm3 (4.00-5.60); RDW 12.5 % (11.9-15.9); WHITE BLOOD COUNT 4.6 K/mm3 (4.0-10.0)
[2018-10-14 11:55] LABS: ALBUMIN 3.1 g/dl (3.4-5.0); ALK PHOS 136 U/L (45-117); ANION GAP 5 MMOL/L (8-16); BILIRUBIN,TOTAL 0.9 mg/dL (0.2-1); BLOOD UREA NITROGEN 13 mg/dL (7-18); CHLORIDE 100 mmol/L (98-107); CO2 35 mmol/L (21-32); CREATININE 0.7 mg/dL (0.55-1.3); GLUCOSE,RANDOM 88 mg/dL (74-106); POTASSIUM 3.3 mmol/L (3.5-5.1); SGOT/AST 15 U/L (15-37); SGPT/ALT 13 U/L (13-61); SODIUM 140 mmol/L (136-145); TOT PROT 6.1 g/dl (6.4-8.2)
--- NOTE | 2018-10-14 13:30 | PN ---
[facility] CIWA - CIWA Score Nausea/Vomitin-No Nausea/No Vomiting Muscle Tremors: 2 Anxiety: 4-Mod. Anxious/Guarded Agitation: 3 Paroxysmal Sweats: 1-Minimal Palms Moist Orientation: 0-Oriented Tacttile Disturbances: 0-None Auditory Disturbances: 0-None Visual Disturbances: 0-None Headache: 0-None Present CIWA-Ar Total Score: 10 BHS COWS - Scale Resting Pulse: 1= [place] 81-100 Sweatin= Chills/Flushing Restless Observation: 0= Sits Still Pupil Size: 0= Normal to Room Light Bone or Joint Aches: 2= Severe Diffuse Aches Runny Nose/ Eye Tearin= None GI Upset > 30mins: 0= None Tremor Observation of Outstretched Hands: 1= Tremor [place], Not Seen Yawning Observation: 0= None Anxiety or Irritability: 2=Irritable/Anxious Goose Flesh Skin: 0=Smooth Skin COWS Score: 7 S Progress Note (SOAP) Subjective: ANXIETY,SWEATS/CHILLS,FATIGUE. Objective: 10/14/18 13:28 Vital Signs 10/14/18 10/14/18 10/14/18 06:16 07:22 09:23 Temperature 96.7 F L 97.1 F L Pulse Rate 63 63 76 Respiratory 18 18 18 Rate Blood Pressure 160/84 158/95 176/95 H 10/14/18 13:20 Temperature 98.6 F Pulse Rate 87 Respiratory 18 Rate Blood Pressure 118/75 Laboratory Tests 10/14/18 10/14/18 07:45 08:00 WBC 4.6 RBC 4.31 Hgb 12.3 Hct 37.9 MCV 87.7 MCH 28.6 MCHC 32.6 RDW 12.5 Plt Count 177 D MPV 7.9 Sodium 140 Potassium 3.3 L Chloride 100 Carbon Dioxide 35 H Anion Gap 5 L BUN 13 Creatinine 0.7 Creat Clearance w eGFR 110.55 Random Glucose 88 Calcium 9.0 Total Bilirubin 0.9 AST 15 ALT 13 Alkaline Phosphatase 136 H Total Protein 6.1 L Albumin 3.1 L K+ =3.3 Assessment: 10/14/18 13:28 WITHDRAWAL SX ACUTE HYPOKALEMIA Plan: CONTINUE DETOX KDUR 20 MEQ PO BID, FIRST DOSE NOW.
[2018-10-14] MEDS ORDERED: POTASSIUM CHLORIDE TABS 20 MEQ TABLET.ER (FP) PO ONE (14:15)
[2018-10-14 17:22] LABS: PH,URINE 7.5 (5.0-8.0); URINE APPEARANCE CLEAR; URINE BILIRUBIN NEGATIVE (NEGATIVE); URINE COLOR YELLOW; URINE GLUCOSE (UA) NEGATIVE (NEGATIVE); URINE KETONE NEGATIVE (NEGATIVE); URINE LEUK ESTERASE NEGATIVE (NEGATIVE); URINE NITRITE NEGATIVE (NEGATIVE); URINE PROTEIN NEGATIVE (NEGATIVE)
[2018-10-14] MEDS ORDERED: POTASSIUM CHLORIDE TABS 20 MEQ TABLET.ER (FP) PO SCH (22:00)
[2018-10-14] MEDS: THIAMINE HCL 100 MG TABLET (FP) PO SCH (22:25)
[2018-10-15 09:29] VITALS: BP 143/100; PULSE 84; TEMP 98.2
[2018-10-15] MEDS: PRENATAL VITAMINS W/ FOLIC ACID TABLET (FP) PO SCH (09:55)
[2018-10-15] MEDS: LISINOPRIL 20 MG TABLET (FP) PO SCH (09:56)
[2018-10-15] MEDS: HYDROCHLOROTHIAZIDE 12.5 MG CAPSULE (FP) PO SCH (09:56)
[2018-10-15] MEDS ORDERED: diazePAM 5 MG TABLET PO SCH (10:00)
[2018-10-15] MEDS ORDERED: METHADONE HCL 10 MG TABLET (FOR DETOX USE ONLY) PO ONE (10:00)
--- NOTE | 2018-10-15 13:03 | DS ---
[facility] Detox Discharge Summary Admission Date: 10/13/18 Discharge Date: 10/15/18 - History Present History: Alcohol Dependence, Opioid Dependence Additional Comments: 73 years old male admitted on 10/13/18 for alcohol and opiate withdrawal stabilization reporting that feeling better wants to leave the detox unit today, alert no acute distress aftercare community self help support group patient preferring to leave the detox unit begin alcohol and opiate rehab tomorrow discuss risks of bp elevation copd patient agrees to return to primary care provider for cardiac and pulmonary condition Pertinent Past History: bring in medication list and lab result to follow up appointment - Physical Exam Results Vital Signs: Vital Signs Temperature 98.2 F 10/15/18 09:28 Pulse Rate 84 10/15/18 09:28 Respiratory Rate 18 10/15/18 09:28 Blood Pressure 143/100 10/15/18 09:28 O2 Sat by Pulse Oximetry (%) Pertinent Admission Physical Exam Findings: alcohol and opiate withdrawal sx Laboratory Last Values WBC 4.6 K/mm3 (4.0-10.0) 10/14/18 08:00 RBC 4.31 M/mm3 (4.00-5.60) 10/14/18 08:00 Hgb 12.3 GM/dL (11.7-16.9) 10/14/18 08:00 Hct 37.9 % (35.4-49) 10/14/18 08:00 MCV 87.7 fl (80-96) 10/14/18 08:00 MCH 28.6 pg (25.7-33.7) 10/14/18 08:00 MCHC 32.6 g/dl (32.0-35.9) 10/14/18 08:00 RDW 12.5 % (11.9-15.9) 10/14/18 08:00 Plt Count 177 K/MM3 (134-434) D 10/14/18 08:00 MPV 7.9 fl (7.5-11.1) 10/14/18 08:00 Sodium 140 mmol/L (136-145) 10/14/18 07:45 Potassium 3.3 mmol/L (3.5-5.1) L 10/14/18 07:45 Chloride 100 mmol/L (98-107) 10/14/18 07:45 Carbon Dioxide 35 mmol/L (21-32) H 10/14/18 07:45 Anion Gap 5 MMOL/L (8-16) L 10/14/18 07:45 BUN 13 mg/dL (7-18) 10/14/18 07:45 Creatinine 0.7 mg/dL (0.55-1.3) 10/14/18 07:45 Creat Clearance w eGFR 110.55 (>60) 10/14/18 07:45 Random Glucose 88 mg/dL (74-106) 10/14/18 07:45 Calcium 9.0 mg/dL (8.5-10.1) 10/14/18 07:45 Total Bilirubin 0.9 mg/dL (0.2-1) 10/14/18 07:45 AST 15 U/L (15-37) 10/14/18 07:45 ALT 13 U/L (13-61) 10/14/18 07:45 Alkaline Phosphatase 136 U/L (45-117) H 10/14/18 07:45 Total Protein 6.1 g/dl (6.4-8.2) L 10/14/18 07:45 Albumin 3.1 g/dl (3.4-5.0) L 10/14/18 07:45 Urine Color Yellow 10/14/18 12:46 Urine Appearance Clear 10/14/18 12:46 Urine pH 7.5 (5.0-8.0) 10/14/18 12:46 Ur Specific [place] 1.010 (1.010-1.035) 10/14/18 12:46 Urine Protein Negative (NEGATIVE) 10/14/18 12:46 Urine Glucose (UA) Negative (NEGATIVE) 10/14/18 12:46 Urine Ketones Negative (NEGATIVE) 10/14/18 12:46 Urine Blood Negative (NEGATIVE) 10/14/18 12:46 Urine Nitrite Negative (NEGATIVE) 10/14/18 12:46 Urine Bilirubin Negative (NEGATIVE) 10/14/18 12:46 Urine Urobilinogen 1.0 mg/dL (0.2-1.0) 10/14/18 12:46 Ur Leukocyte Esterase Negative (NEGATIVE) 10/14/18 12:46 RPR Titer Nonreactive (NONREACTIVE) 10/14/18 07:45 lab noted encourage the patient to picking supervisor medication from pharmacy narcan and K [facility] Hospital Course: Detox Protocol Followed, Detoxed Safely, Responded well, Discharged Condition Good, Rehab Referral Accepted Patient has Accepted a Rehab Referral to: community self help group - Medication Discharge Medications: Ambulatory Orders Hydrochlorothiazide 12.5 mg PO DAILY #30 tablet 10/15/18 Lisinopril 20 mg PO DAILY #30 tablet 10/15/18 Naloxone HCl [Narcan] 4 mg NS ASDIR PRN #1 spray 10/15/18 Potassium Chloride [K-Dur -] 20 meq PO BID #10 tablet.er 10/15/18 - Diagnosis (1) Alcohol dependence with uncomplicated withdrawal Status: Acute (2) Nicotine dependence Status: Acute Qualifiers: Nicotine product type: cigarettes Substance use status: in withdrawal Qualified Code(s): F17.213 - Nicotine dependence, cigarettes, with withdrawal (3) Opioid dependence with withdrawal Status: Acute (4) Substance induced mood disorder Status: Suspected (5) COPD (chronic obstructive pulmonary disease) Status: Chronic Qualifiers: Chronic bronchitis type: unspecified (6) HTN (hypertension) Status: Chronic (7) PPD positive Status: Resolved - AMA Did Patient Leave Against Medical Advice: No
[2018-10-16] MEDS ORDERED: diazePAM 5 MG TABLET PO SCH (06:00)
[2018-10-16] MEDS ORDERED: METHADONE HCL 5 MG TABLET (FOR DETOX USE ONLY) PO ONE (06:00)
== END 2018-10-15 10:04 | disposition home or self-care (01) | DRG 897 ==
LOC: YASAS 14:07 → Y3N 19:53
PROVIDERS: ADMIT Surgery; ATTEND Surgery
PROC: HZ2ZZZZ Detoxification Services for Substance Abuse Treatment (ICD-10-PCS; principal; 2018-10-13)
DX: F10.230 Alcohol dependence with withdrawal, uncomplicated (principal); F11.23 Opioid dependence with withdrawal; F17.213 Nicotine dependence, cigarettes, with withdrawal; F19.24 Other psychoactive substance dependence with psychoactive substance-induced mood disorder; I10 Essential (primary) hypertension; J44.9 Chronic obstructive pulmonary disease, unspecified; E87.6 Hypokalemia; Z86.79 Personal history of other diseases of the circulatory system; R94.31 Abnormal electrocardiogram [ECG] [EKG]; R76.11 Nonspecific reaction to tuberculin skin test without active tuberculosis; Z86.19 Personal history of other infectious and parasitic diseases
CPT/HCPCS: 36415; 80053; 81003; 85027; 86593; 93005; 93010; J0735

== ENCOUNTER 2021-10-15 12:44 | Inpatient (IN) | payer OTHER ==
[2021-10-15] MEDS ORDERED: MAGNESIUM CITRATE 300 ML BOTTLE PO PRN (14:48)
[2021-10-15] MEDS ORDERED: BISMUTH SUBSALICYLATE 262 MG/15 ML BTL PO PRN (14:48)
[2021-10-15] MEDS ORDERED: DICYCLOMINE HCL 10 MG CAPSULE PO PRN (14:48)
[2021-10-15] MEDS ORDERED: MAGNESIUM HYDROX 2400MG/30ML ORAL SUSPENSION 30 ML CUP PO PRN (14:48)
[2021-10-15] MEDS ORDERED: MAG HYDROX/AL HYDROX/SIMETH 30 ML UNIT-DOSE CUP PO PRN (14:48)
[2021-10-15] MEDS ORDERED: diazePAM 5 MG TABLET PO PRN (14:48)
[2021-10-15] MEDS ORDERED: ONDANSETRON *ODT* 4 MG TABLET SL PRN (14:48)
[2021-10-15] MEDS ORDERED: NICOTINE 10 MG CARTRIDGE (INHALER) IH PRN (14:48)
[2021-10-15] MEDS ORDERED: LOPERAMIDE HCL 2 MG CAPSULE PO PRN (14:48)
[2021-10-15] MEDS ORDERED: BUPRENORPHINE HCL 150 MCG, BUPRENORPHINE HCL 75 MCG BC ONE (14:48)
[2021-10-15] MEDS ORDERED: IBUPROFEN 400 MG TABLET (FP) PO PRN (14:48)
[2021-10-15] MEDS ORDERED: ACETAMINOPHEN 325 MG TABLET (FP) PO PRN ×2 (14:48)
[2021-10-15] MEDS ORDERED: BENZOCAINE/MENTHOL (CHLORASEPTIC ) LOZENGE MM PRN (14:48)
[2021-10-15] MEDS ORDERED: BUPRENORPHINE HCL 150 MCG, BUPRENORPHINE HCL 75 MCG BC PRN (14:48)
[2021-10-15] MEDS ORDERED: cloNIDine HCL 0.1 MG TABLET PO ONE (14:48)
[2021-10-15 15:54] VITALS: BMI 21.7
[2021-10-15] MEDS ORDERED: BUPRENORPHINE HCL 150 MCG FILM BC ONE (18:16)
[2021-10-15] MEDS ORDERED: BUPRENORPHINE HCL 75 MCG FILM BC ONE (18:16)
[2021-10-15] MEDS ORDERED: cloNIDine HCL 0.1 MG TABLET ONE (18:17)
[2021-10-15] MEDS: PRENATAL VITAMINS W/ FOLIC ACID TABLET (FP) PO SCH (22:52)
[2021-10-15] MEDS: MELATONIN 5 MG TABLETS PO SCH (22:52)
[2021-10-15] MEDS: THIAMINE HCL 100 MG TABLET (FP) PO SCH (22:52)
[2021-10-15] MEDS: NICOTINE 14 MG/24 HOURS TOPICAL PATCH TD SCH (22:53)
[2021-10-16] MEDS ORDERED: BUPRENORPHINE HCL 150 MCG, BUPRENORPHINE HCL 75 MCG BC PRN
[2021-10-16] MEDS: BUPRENORPHINE HCL 150 MCG, BUPRENORPHINE HCL 75 MCG BC SCH ×2 (07:04→19:29)
[2021-10-16 09:52] LABS: HEMATOCRIT 29.1 % (35.4-49); HEMOGLOBIN 9.7 GM/dL (11.7-16.9); MCH 29.7 pg (25.7-33.7); MCHC 33.3 g/dl (32.0-35.9); MEAN CELL VOLUME 89.2 fl (80-96); MEAN PLT VOLUME 7.4 fl (7.5-11.1); PLATELET COUNT 184 10^3/uL (134-434); RBC 3.26 M/mm3 (4.00-5.60); RDW 12.2 % (11.9-15.9); WHITE BLOOD COUNT 4.9 K/mm3 (4.0-10.0)
[2021-10-16 10:14] LABS: BILIRUBIN,TOTAL 0.6 mg/dL (0.2-1)
[2021-10-16 10:26] LABS: ALBUMIN 2.7 g/dl (3.4-5.0); TOT PROT 5.3 g/dl (6.4-8.2)
[2021-10-16 10:27] LABS: BLOOD UREA NITROGEN 24.8 mg/dL (7-18); CALCIUM 8.5 mg/dL (8.5-10.1); CREATININE 0.7 mg/dL (0.55-1.3)
[2021-10-16] MEDS: PRENATAL VITAMINS W/ FOLIC ACID TABLET (FP) PO SCH (10:31)
[2021-10-16] MEDS: HYDROCHLOROTHIAZIDE 12.5 MG CAPSULE (FP) PO SCH (10:31)
[2021-10-16] MEDS: hydrOXYzine PAMOATE 25 MG CAPSULE (FP) PO PRN (10:32)
[2021-10-16] MEDS: NICOTINE 14 MG/24 HOURS TOPICAL PATCH TD SCH (10:32)
[2021-10-16] MEDS: LISINOPRIL 20 MG TABLET PO SCH (10:35)
[2021-10-16] MEDS ORDERED: BUPRENORPHINE HCL 150 MCG FILM BC ONE (17:10)
[2021-10-16] MEDS ORDERED: BUPRENORPHINE HCL 75 MCG FILM BC ONE (17:11)
[2021-10-16] MEDS: METHOCARBAMOL 500 MG TABLET PO PRN (18:56)
[2021-10-16] MEDS: MELATONIN 5 MG TABLETS PO SCH (23:28)
[2021-10-16] MEDS: THIAMINE HCL 100 MG TABLET (FP) PO SCH (23:28)
[2021-10-17] MEDS: METHOCARBAMOL 500 MG TABLET PO PRN ×2 (03:03→15:18)
[2021-10-17] MEDS: hydrOXYzine PAMOATE 25 MG CAPSULE (FP) PO PRN ×4 (03:03→17:50)
[2021-10-17] MEDS: BUPRENORPHINE HCL 450 MCG FILM BC SCH ×2 (08:01→17:50)
[2021-10-17] MEDS: LISINOPRIL 20 MG TABLET PO SCH (10:42)
[2021-10-17] MEDS: cloNIDine HCL 0.1 MG TABLET PO PRN ×2 (10:42→17:50)
[2021-10-17] MEDS: PRENATAL VITAMINS W/ FOLIC ACID TABLET (FP) PO SCH (10:42)
[2021-10-17] MEDS: HYDROCHLOROTHIAZIDE 12.5 MG CAPSULE (FP) PO SCH (10:42)
[2021-10-17 10:43] LABS: HEMATOCRIT 29.7 % (35.4-49); MCH 29.6 pg (25.7-33.7); MCHC 33.5 g/dl (32.0-35.9); MEAN CELL VOLUME 88.5 fl (80-96); MEAN PLT VOLUME 7.9 fl (7.5-11.1); PLATELET COUNT 189 10^3/uL (134-434); RBC 3.36 M/mm3 (4.00-5.60); RDW 12.7 % (11.9-15.9); WHITE BLOOD COUNT 6.4 K/mm3 (4.0-10.0)
[2021-10-17] MEDS: NICOTINE 14 MG/24 HOURS TOPICAL PATCH TD SCH (10:43)
[2021-10-17 14:08] LABS: SARS-CoV-2 NAA Not Detected (Not Detected)
[2021-10-17] MEDS: MELATONIN 5 MG TABLETS PO SCH (22:24)
[2021-10-17] MEDS: THIAMINE HCL 100 MG TABLET (FP) PO SCH (22:24)
[2021-10-18] MEDS: BUPRENORPHINE/NALOXONE 4 MG/1 MG FILM PACKET SL SCH ×2 (06:46→17:16)
[2021-10-18] MEDS: LISINOPRIL 20 MG TABLET PO SCH (10:36)
[2021-10-18] MEDS: NICOTINE 14 MG/24 HOURS TOPICAL PATCH TD SCH (10:36)
[2021-10-18] MEDS: hydrOXYzine PAMOATE 25 MG CAPSULE (FP) PO PRN (10:36)
[2021-10-18] MEDS: HYDROCHLOROTHIAZIDE 12.5 MG CAPSULE (FP) PO SCH (10:36)
[2021-10-18] MEDS: PRENATAL VITAMINS W/ FOLIC ACID TABLET (FP) PO SCH (10:36)
[2021-10-18] MEDS: THIAMINE HCL 100 MG TABLET (FP) PO SCH (22:29)
[2021-10-18] MEDS: MELATONIN 5 MG TABLETS PO SCH (22:29)
[2021-10-19] MEDS ORDERED: BUPRENORPHINE/NALOXONE 8 MG/2 MG FILM PACKET SL ONE (06:00)
[2021-10-19] MEDS: LISINOPRIL 20 MG TABLET PO SCH (10:38)
[2021-10-19] MEDS: NICOTINE 14 MG/24 HOURS TOPICAL PATCH TD SCH (10:38)
[2021-10-19] MEDS: PRENATAL VITAMINS W/ FOLIC ACID TABLET (FP) PO SCH (10:38)
[2021-10-19] MEDS: HYDROCHLOROTHIAZIDE 12.5 MG CAPSULE (FP) PO SCH (10:38)
[2021-10-19] MEDS: METHOCARBAMOL 500 MG TABLET PO PRN (10:40)
[2021-10-19] MEDS: MELATONIN 5 MG TABLETS PO SCH (22:42)
[2021-10-19] MEDS: THIAMINE HCL 100 MG TABLET (FP) PO SCH (22:42)
[2021-10-20] MEDS ORDERED: BUPRENORPHINE/NALOXONE 8 MG/2 MG FILM PACKET SL SCH ×2 (06:00→10:00)
[2021-10-20 08:48] VITALS: BP 128/74; PULSE 90; TEMP 97.2
[2021-10-20] MEDS: NICOTINE 14 MG/24 HOURS TOPICAL PATCH TD SCH (10:01)
[2021-10-20] MEDS: HYDROCHLOROTHIAZIDE 12.5 MG CAPSULE (FP) PO SCH (10:01)
[2021-10-20] MEDS: PRENATAL VITAMINS W/ FOLIC ACID TABLET (FP) PO SCH (10:01)
[2021-10-20] MEDS: LISINOPRIL 20 MG TABLET PO SCH (10:01)
== END 2021-10-19 23:45 | disposition other institution (70) | DRG 897 ==
LOC: YASAS 12:44 → Y3N 17:31 → UNDODISIN 10-19 23:43 → Y3N 10-20 00:41 → Y3E 10-20 00:41
PROVIDERS: ADMIT Allergy & Immunology; ATTEND Allergy & Immunology
PROC: HZ2ZZZZ Detoxification Services for Substance Abuse Treatment (ICD-10-PCS; principal; 2021-10-15)
DX: F11.23 Opioid dependence with withdrawal (principal); F17.210 Nicotine dependence, cigarettes, uncomplicated; F41.9 Anxiety disorder, unspecified; I25.10 Atherosclerotic heart disease of native coronary artery without angina pectoris; I10 Essential (primary) hypertension; R79.89 Other specified abnormal findings of blood chemistry; J44.9 Chronic obstructive pulmonary disease, unspecified; D64.9 Anemia, unspecified; Z86.11 Personal history of tuberculosis; Z86.19 Personal history of other infectious and parasitic diseases
CPT/HCPCS: 36415; 71045-TC-FY; 80053; 82607; 82746; 83540; 83550; 84520; 85027; 85045; 86780; 93005; 93010; C9803-CS; J0735; U0003; U0005

== ENCOUNTER 2021-10-20 00:42 | Inpatient (IN) | payer OTHER ==
[2021-10-20] MEDS ORDERED: MAGNESIUM HYDROX 2400MG/30ML ORAL SUSPENSION 30 ML CUP PO PRN (14:55)
[2021-10-20] MEDS ORDERED: NICOTINE 10 MG CARTRIDGE (INHALER) IH PRN (14:55)
[2021-10-20] MEDS ORDERED: P-EPHED 60MG/TRIPROLIDI 2.5MG TABLET PO PRN (14:55)
[2021-10-20] MEDS ORDERED: MAGNESIUM CITRATE 300 ML BOTTLE PO PRN (14:55)
[2021-10-20] MEDS ORDERED: LOPERAMIDE HCL 2 MG CAPSULE PO PRN (14:55)
[2021-10-20] MEDS ORDERED: IBUPROFEN 400 MG TABLET (FP) PO PRN (14:55)
[2021-10-20] MEDS ORDERED: BENZOCAINE/MENTHOL (CHLORASEPTIC ) LOZENGE MM PRN (14:55)
[2021-10-20] MEDS ORDERED: guaiFENesin 200 MG/10 ML 10 ML UNIT-DOSE CUPS PO PRN (14:55)
[2021-10-20] MEDS ORDERED: MAG HYDROX/AL HYDROX/SIMETH 30 ML UNIT-DOSE CUP PO PRN (14:55)
[2021-10-20] MEDS ORDERED: hydrOXYzine PAMOATE 25 MG CAPSULE (FP) PO PRN (14:55)
[2021-10-20] MEDS ORDERED: ALBUTEROL SO4 HFA INHALER IH PRN (15:32)
[2021-10-20] MEDS: MELATONIN 5 MG TABLETS PO SCH (21:40)
[2021-10-20] MEDS: THIAMINE HCL 100 MG TABLET (FP) PO SCH (21:40)
[2021-10-20] MEDS: SENNOSIDES 8.6MG TABLET (FP) PO SCH (21:40)
[2021-10-21] MEDS: BUPRENORPHINE/NALOXONE 8 MG/2 MG FILM PACKET SL SCH (06:27)
[2021-10-21] MEDS: PRENATAL VITAMINS W/ FOLIC ACID TABLET (FP) PO SCH (10:26)
[2021-10-21] MEDS: HYDROCHLOROTHIAZIDE 12.5 MG CAPSULE (FP) PO SCH (10:26)
[2021-10-21] MEDS: LISINOPRIL 20 MG TABLET PO SCH (10:26)
[2021-10-21] MEDS: NICOTINE 7 MG/24 HOURS TOPICAL PATCH TD SCH (10:27)
[2021-10-21] MEDS: TIOTROPIUM BROMIDE 2.5 MCG (SPIRIVA) RESPIMAT INHALER IH SCH (10:29)
[2021-10-21] MEDS: DOCUSATE SODIUM 100 MG CAPSULE (FP) PO SCH ×2 (13:28→21:33)
[2021-10-21] MEDS: MELATONIN 5 MG TABLETS PO SCH (21:33)
[2021-10-21] MEDS: THIAMINE HCL 100 MG TABLET (FP) PO SCH (21:33)
[2021-10-21] MEDS: SENNOSIDES 8.6MG TABLET (FP) PO SCH (21:40)
[2021-10-22] MEDS: BUPRENORPHINE/NALOXONE 8 MG/2 MG FILM PACKET SL SCH (06:31)
[2021-10-22] MEDS: DOCUSATE SODIUM 100 MG CAPSULE (FP) PO SCH ×3 (06:31→21:31)
[2021-10-22] MEDS: TIOTROPIUM BROMIDE 2.5 MCG (SPIRIVA) RESPIMAT INHALER IH SCH (09:13)
[2021-10-22] MEDS: HYDROCHLOROTHIAZIDE 12.5 MG CAPSULE (FP) PO SCH (09:14)
[2021-10-22] MEDS: PRENATAL VITAMINS W/ FOLIC ACID TABLET (FP) PO SCH (09:14)
[2021-10-22] MEDS: LISINOPRIL 20 MG TABLET PO SCH (09:14)
[2021-10-22] MEDS: ACETAMINOPHEN 325 MG TABLET (FP) PO PRN (09:15)
[2021-10-22] MEDS: NICOTINE 7 MG/24 HOURS TOPICAL PATCH TD SCH (09:16)
[2021-10-22] MEDS: THIAMINE HCL 100 MG TABLET (FP) PO SCH (21:31)
[2021-10-22] MEDS: MELATONIN 5 MG TABLETS PO SCH (21:31)
[2021-10-22] MEDS: SENNOSIDES 8.6MG TABLET (FP) PO SCH (21:34)
[2021-10-23] MEDS: ACETAMINOPHEN 325 MG TABLET (FP) PO PRN (07:09)
[2021-10-23] MEDS: BUPRENORPHINE/NALOXONE 8 MG/2 MG FILM PACKET SL SCH (07:09)
[2021-10-23] MEDS: DOCUSATE SODIUM 100 MG CAPSULE (FP) PO SCH ×3 (07:09→21:17)
[2021-10-23] MEDS: HYDROCHLOROTHIAZIDE 12.5 MG CAPSULE (FP) PO SCH (11:59)
[2021-10-23] MEDS: NICOTINE 7 MG/24 HOURS TOPICAL PATCH TD SCH (11:59)
[2021-10-23] MEDS: TIOTROPIUM BROMIDE 2.5 MCG (SPIRIVA) RESPIMAT INHALER IH SCH (12:00)
[2021-10-23] MEDS: PRENATAL VITAMINS W/ FOLIC ACID TABLET (FP) PO SCH (12:00)
[2021-10-23] MEDS: LISINOPRIL 20 MG TABLET PO SCH (12:00)
[2021-10-23] MEDS: LIDOCAINE 5% TOPICAL PATCH TP SCH (15:01)
[2021-10-23] MEDS: THIAMINE HCL 100 MG TABLET (FP) PO SCH (21:16)
[2021-10-23] MEDS: MELATONIN 5 MG TABLETS PO SCH (21:16)
[2021-10-23] MEDS: LIDOCAINE PATCH REMOVAL MC SCH (21:17)
[2021-10-23] MEDS: METHYL SALICYLATE/MENTHOL OINT 30 GM TUBE TP SCH (21:18)
[2021-10-23] MEDS: SENNOSIDES 8.6MG TABLET (FP) PO SCH (21:18)
[2021-10-24] MEDS: DOCUSATE SODIUM 100 MG CAPSULE (FP) PO SCH ×3 (06:31→21:37)
[2021-10-24] MEDS: BUPRENORPHINE/NALOXONE 8 MG/2 MG FILM PACKET SL SCH (06:37)
[2021-10-24] MEDS: NICOTINE 7 MG/24 HOURS TOPICAL PATCH TD SCH (09:24)
[2021-10-24] MEDS: HYDROCHLOROTHIAZIDE 12.5 MG CAPSULE (FP) PO SCH (09:24)
[2021-10-24] MEDS: LIDOCAINE 5% TOPICAL PATCH TP SCH (09:24)
[2021-10-24] MEDS: PRENATAL VITAMINS W/ FOLIC ACID TABLET (FP) PO SCH (09:24)
[2021-10-24] MEDS: TIOTROPIUM BROMIDE 2.5 MCG (SPIRIVA) RESPIMAT INHALER IH SCH (09:24)
[2021-10-24] MEDS: LISINOPRIL 20 MG TABLET PO SCH (09:24)
[2021-10-24] MEDS: MELATONIN 5 MG TABLETS PO SCH (21:37)
[2021-10-24] MEDS: THIAMINE HCL 100 MG TABLET (FP) PO SCH (21:37)
[2021-10-24] MEDS: LIDOCAINE PATCH REMOVAL MC SCH (21:39)
[2021-10-24] MEDS: SENNOSIDES 8.6MG TABLET (FP) PO SCH (21:39)
[2021-10-24] MEDS: METHYL SALICYLATE/MENTHOL OINT 30 GM TUBE TP SCH (21:39)
[2021-10-24] MEDS: ACETAMINOPHEN 325 MG TABLET (FP) PO PRN (23:29)
[2021-10-25] MEDS: DOCUSATE SODIUM 100 MG CAPSULE (FP) PO SCH ×3 (06:27→21:11)
[2021-10-25] MEDS: BUPRENORPHINE/NALOXONE 8 MG/2 MG FILM PACKET SL SCH (06:27)
[2021-10-25] MEDS: HYDROCHLOROTHIAZIDE 12.5 MG CAPSULE (FP) PO SCH (09:24)
[2021-10-25] MEDS: LISINOPRIL 20 MG TABLET PO SCH (09:24)
[2021-10-25] MEDS: TIOTROPIUM BROMIDE 2.5 MCG (SPIRIVA) RESPIMAT INHALER IH SCH (09:24)
[2021-10-25] MEDS: NICOTINE 7 MG/24 HOURS TOPICAL PATCH TD SCH (09:25)
[2021-10-25] MEDS: LIDOCAINE 5% TOPICAL PATCH TP SCH (09:25)
[2021-10-25] MEDS: PRENATAL VITAMINS W/ FOLIC ACID TABLET (FP) PO SCH (09:26)
[2021-10-25 10:01] VITALS: TEMP 97.1
[2021-10-25] MEDS: ACETAMINOPHEN 325 MG TABLET (FP) PO PRN (19:24)
[2021-10-25] MEDS: THIAMINE HCL 100 MG TABLET (FP) PO SCH (21:11)
[2021-10-25] MEDS: MELATONIN 5 MG TABLETS PO SCH (21:11)
[2021-10-25] MEDS: LIDOCAINE PATCH REMOVAL MC SCH (21:12)
[2021-10-25] MEDS: SENNOSIDES 8.6MG TABLET (FP) PO SCH (21:12)
[2021-10-25] MEDS: METHYL SALICYLATE/MENTHOL OINT 30 GM TUBE TP SCH (21:12)
[2021-10-26] MEDS: BUPRENORPHINE/NALOXONE 8 MG/2 MG FILM PACKET SL SCH (05:46)
[2021-10-26] MEDS: DOCUSATE SODIUM 100 MG CAPSULE (FP) PO SCH (05:46)
[2021-10-26 09:24] VITALS: BP 123/75; PULSE 96
[2021-10-26] MEDS: LISINOPRIL 20 MG TABLET PO SCH (09:33)
[2021-10-26] MEDS: HYDROCHLOROTHIAZIDE 12.5 MG CAPSULE (FP) PO SCH (09:33)
[2021-10-26] MEDS: LIDOCAINE 5% TOPICAL PATCH TP SCH (09:34)
[2021-10-26] MEDS: TIOTROPIUM BROMIDE 2.5 MCG (SPIRIVA) RESPIMAT INHALER IH SCH (09:34)
[2021-10-26] MEDS: NICOTINE 7 MG/24 HOURS TOPICAL PATCH TD SCH (09:34)
[2021-10-26] MEDS: PRENATAL VITAMINS W/ FOLIC ACID TABLET (FP) PO SCH (09:34)
== END 2021-10-26 09:48 | disposition home or self-care (01) | DRG 895 ==
LOC: YASAS 00:42 → Y3E 00:45
PROVIDERS: ADMIT Allergy & Immunology; ATTEND Psychiatry & Neurology Pain Medicine
PROC: HZ42ZZZ Group Counseling for Substance Abuse Treatment, Cognitive-Behavioral (ICD-10-PCS; principal; 2021-10-20)
DX: F11.20 Opioid dependence, uncomplicated (principal); F10.20 Alcohol dependence, uncomplicated; F12.20 Cannabis dependence, uncomplicated; F17.210 Nicotine dependence, cigarettes, uncomplicated; G47.00 Insomnia, unspecified; I25.10 Atherosclerotic heart disease of native coronary artery without angina pectoris; I10 Essential (primary) hypertension; J44.9 Chronic obstructive pulmonary disease, unspecified; R94.31 Abnormal electrocardiogram [ECG] [EKG]; R76.11 Nonspecific reaction to tuberculin skin test without active tuberculosis; R79.89 Other specified abnormal findings of blood chemistry
CPT/HCPCS: 82962; C9803-CS; U0003; U0005

== ENCOUNTER 2022-02-09 13:48 | Inpatient (IN) | payer OTHER ==
[2022-02-09 14:57] VITALS: BMI 29.8
[2022-02-09] MEDS ORDERED: LOPERAMIDE HCL 2 MG CAPSULE PO PRN (15:02)
[2022-02-09] MEDS ORDERED: diazePAM 5 MG TABLET PO PRN ×2 (15:02→15:16)
[2022-02-09] MEDS ORDERED: MAG HYDROX/AL HYDROX/SIMETH 30 ML UNIT-DOSE CUP PO PRN (15:02)
[2022-02-09] MEDS ORDERED: NICOTINE 10 MG CARTRIDGE (INHALER) IH PRN (15:02)
[2022-02-09] MEDS ORDERED: DICYCLOMINE HCL 10 MG CAPSULE PO PRN (15:02)
[2022-02-09] MEDS ORDERED: ONDANSETRON *ODT* 4 MG TABLET SL PRN (15:02)
[2022-02-09] MEDS ORDERED: BISMUTH SUBSALICYLATE 524 MG/30 ML PO PRN (15:02)
[2022-02-09] MEDS ORDERED: BUPRENORPHINE HCL 150 MCG, BUPRENORPHINE HCL 75 MCG BC PRN (15:02)
[2022-02-09] MEDS ORDERED: MAGNESIUM HYDROX 2400MG/30ML ORAL SUSPENSION 30 ML CUP PO PRN (15:02)
[2022-02-09] MEDS ORDERED: MAGNESIUM CITRATE 300 ML BOTTLE PO PRN (15:02)
[2022-02-09] MEDS ORDERED: IBUPROFEN 400 MG TABLET (FP) PO PRN (15:02)
[2022-02-09] MEDS ORDERED: ACETAMINOPHEN 325 MG TABLET (FP) PO PRN ×2 (15:02)
[2022-02-09] MEDS ORDERED: BENZOCAINE/MENTHOL (CHLORASEPTIC ) LOZENGE MM PRN (15:02)
[2022-02-09] MEDS ORDERED: cloNIDine HCL 0.1 MG TABLET PO ONE (15:15)
[2022-02-09] MEDS ORDERED: BUPRENORPHINE HCL 150 MCG, BUPRENORPHINE HCL 75 MCG BC ONE (15:15)
[2022-02-09] MEDS ORDERED: ALBUTEROL SO4 HFA INHALER IH PRN (15:15)
[2022-02-09] MEDS ORDERED: cloNIDine HCL 0.1 MG TABLET ONE (16:53)
[2022-02-09] MEDS: PRENATAL VITAMINS W/ FOLIC ACID TABLET (FP) PO SCH (18:23)
[2022-02-09] MEDS: METHOCARBAMOL 500 MG TABLET PO PRN (18:24)
[2022-02-09] MEDS: HYDROCHLOROTHIAZIDE 25 MG TABLET (FP) PO SCH (18:24)
[2022-02-09] MEDS: IBUPROFEN 600 MG TABLET (FP) PO PRN (18:25)
[2022-02-09] MEDS: TIOTROPIUM BROMIDE 2.5 MCG (SPIRIVA) RESPIMAT INHALER IH SCH (18:57)
[2022-02-09] MEDS: MELATONIN 5 MG TABLETS PO SCH (23:05)
[2022-02-09] MEDS: THIAMINE HCL 100 MG TABLET (FP) PO SCH (23:05)
[2022-02-09] MEDS: hydrOXYzine PAMOATE 25 MG CAPSULE (FP) PO PRN (23:05)
[2022-02-09] MEDS: SENNOSIDES 8.6MG TABLET (FP) PO SCH (23:05)
[2022-02-10] MEDS ORDERED: BUPRENORPHINE HCL 150 MCG, BUPRENORPHINE HCL 75 MCG BC PRN
[2022-02-10] MEDS: NAPROXEN 500 MG TABLET PO PRN (01:17)
[2022-02-10] MEDS: BUPRENORPHINE HCL 150 MCG, BUPRENORPHINE HCL 75 MCG BC SCH ×2 (05:29→07:27)
[2022-02-10] MEDS: IBUPROFEN 600 MG TABLET (FP) PO PRN (05:35)
[2022-02-10] MEDS: METHOCARBAMOL 500 MG TABLET PO PRN ×2 (05:35→17:40)
[2022-02-10] MEDS: cloNIDine HCL 0.1 MG TABLET PO PRN ×2 (07:09→17:40)
[2022-02-10] MEDS ORDERED: methaDONE HCL 10 MG TABLET (FOR DETOX USE ONLY) PO ONE (10:00)
[2022-02-10] MEDS: TIOTROPIUM BROMIDE 2.5 MCG (SPIRIVA) RESPIMAT INHALER IH SCH (11:11)
[2022-02-10 11:39] LABS: HEMOGLOBIN 13.2 GM/dL (11.7-16.9); MCH 30.2 pg (25.7-33.7); MCHC 33.8 g/dl (32.0-35.9); MEAN CELL VOLUME 89.3 fl (80-96); MEAN PLT VOLUME 7.6 fl (7.5-11.1); PLATELET COUNT 270 10^3/uL (134-434); RBC 4.36 M/mm3 (4.00-5.60); RDW 12.5 % (11.9-15.9); WHITE BLOOD COUNT 8.2 K/mm3 (4.0-10.0)
[2022-02-10 12:09] LABS: BLOOD UREA NITROGEN 13.3 mg/dL (7-18); CALCIUM 10.3 mg/dL (8.5-10.1)
[2022-02-10 12:10] LABS: ALBUMIN 4.4 g/dl (3.4-5.0)
[2022-02-10 12:14] LABS: BILIRUBIN,TOTAL 1.3 mg/dL (0.2-1); CREATININE 0.6 mg/dL (0.55-1.3); TOT PROT 7.6 g/dl (6.4-8.2)
[2022-02-10] MEDS ORDERED: TRIMETHOBENZAMIDE HCL 200MG/2ML INJ IM PRN (12:38)
[2022-02-10] MEDS: PRENATAL VITAMINS W/ FOLIC ACID TABLET (FP) PO SCH (12:46)
[2022-02-10] MEDS: NICOTINE 14 MG/24 HOURS TOPICAL PATCH TD SCH (12:46)
[2022-02-10] MEDS: LISINOPRIL 20 MG TABLET PO SCH (12:56)
[2022-02-10] MEDS: HYDROCHLOROTHIAZIDE 25 MG TABLET (FP) PO SCH (12:56)
[2022-02-10] MEDS: THIAMINE HCL 100 MG TABLET (FP) PO SCH (22:45)
[2022-02-10] MEDS: SENNOSIDES 8.6MG TABLET (FP) PO SCH (22:45)
[2022-02-10] MEDS: MELATONIN 5 MG TABLETS PO SCH (22:46)
[2022-02-11] MEDS ORDERED: BUPRENORPHINE HCL 450 MCG FILM BC SCH (06:00)
[2022-02-11] MEDS: hydrOXYzine PAMOATE 25 MG CAPSULE (FP) PO PRN (06:49)
[2022-02-11] MEDS: METHOCARBAMOL 500 MG TABLET PO PRN (06:49)
[2022-02-11] MEDS: cloNIDine HCL 0.1 MG TABLET PO PRN (06:49)
[2022-02-11] MEDS: TIOTROPIUM BROMIDE 2.5 MCG (SPIRIVA) RESPIMAT INHALER IH SCH (11:09)
[2022-02-11] MEDS: LISINOPRIL 20 MG TABLET PO SCH (11:09)
[2022-02-11] MEDS: HYDROCHLOROTHIAZIDE 25 MG TABLET (FP) PO SCH (11:09)
[2022-02-11] MEDS: PRENATAL VITAMINS W/ FOLIC ACID TABLET (FP) PO SCH (11:09)
[2022-02-11] MEDS: NICOTINE 14 MG/24 HOURS TOPICAL PATCH TD SCH (11:09)
[2022-02-11] MEDS: POTASSIUM CHLORIDE ORAL LIQUID 20 MEQ/15 ML PO SCH ×2 (11:09→23:10)
[2022-02-11 21:25] VITALS: RESP 16
[2022-02-11] MEDS: THIAMINE HCL 100 MG TABLET (FP) PO SCH (23:10)
[2022-02-11] MEDS: MELATONIN 5 MG TABLETS PO SCH (23:14)
[2022-02-11] MEDS: NAPROXEN 500 MG TABLET PO PRN (23:14)
[2022-02-11] MEDS: SENNOSIDES 8.6MG TABLET (FP) PO SCH (23:35)
[2022-02-12] MEDS ORDERED: BUPRENORPHINE/NALOXONE 4 MG/1 MG FILM PACKET SL SCH (06:00)
[2022-02-12] MEDS: cloNIDine HCL 0.1 MG TABLET PO PRN (06:03)
[2022-02-12 09:07] VITALS: BP 158/96; PULSE 80; TEMP 98
[2022-02-12] MEDS ORDERED: methaDONE HCL 10 MG TABLET (FOR DETOX USE ONLY) PO ONE (10:00)
[2022-02-12] MEDS: NICOTINE 14 MG/24 HOURS TOPICAL PATCH TD SCH (10:51)
[2022-02-12] MEDS: LISINOPRIL 20 MG TABLET PO SCH (10:51)
[2022-02-12] MEDS: HYDROCHLOROTHIAZIDE 25 MG TABLET (FP) PO SCH (10:51)
[2022-02-12] MEDS: POTASSIUM CHLORIDE ORAL LIQUID 20 MEQ/15 ML PO SCH (10:51)
[2022-02-12] MEDS: PRENATAL VITAMINS W/ FOLIC ACID TABLET (FP) PO SCH (10:51)
[2022-02-12] MEDS: TIOTROPIUM BROMIDE 2.5 MCG (SPIRIVA) RESPIMAT INHALER IH SCH (10:51)
[2022-02-12 11:11] LABS: CALCIUM 9.8 mg/dL (8.5-10.1)
[2022-02-12 11:12] LABS: BLOOD UREA NITROGEN 31.2 mg/dL (7-18)
[2022-02-12 11:15] LABS: CREATININE 0.9 mg/dL (0.55-1.3)
[2022-02-12 11:17] LABS: TOT PROT 7.5 g/dl (6.4-8.2)
[2022-02-12 11:19] LABS: BILIRUBIN,TOTAL 1.8 mg/dL (0.2-1)
[2022-02-13] MEDS ORDERED: BUPRENORPHINE/NALOXONE 8 MG/2 MG FILM PACKET SL ONE (06:00)
== END 2022-02-12 12:20 | disposition home or self-care (01) | DRG 897 ==
LOC: YASAS 13:48 → Y6N 16:54
PROVIDERS: ADMIT Allergy & Immunology; ATTEND Surgery
PROC: HZ2ZZZZ Detoxification Services for Substance Abuse Treatment (ICD-10-PCS; principal; 2022-02-09)
DX: F11.23 Opioid dependence with withdrawal (principal); F19.282 Other psychoactive substance dependence with psychoactive substance-induced sleep disorder; F10.10 Alcohol abuse, uncomplicated; F17.210 Nicotine dependence, cigarettes, uncomplicated; F19.24 Other psychoactive substance dependence with psychoactive substance-induced mood disorder; I10 Essential (primary) hypertension; I25.10 Atherosclerotic heart disease of native coronary artery without angina pectoris; J44.9 Chronic obstructive pulmonary disease, unspecified; E87.6 Hypokalemia; M19.90 Unspecified osteoarthritis, unspecified site; M54.40 Lumbago with sciatica, unspecified side; G89.29 Other chronic pain; R94.31 Abnormal electrocardiogram [ECG] [EKG]; R26.2 Difficulty in walking, not elsewhere classified; Z99.89 Dependence on other enabling machines and devices; Z86.11 Personal history of tuberculosis
CPT/HCPCS: 36415; 80053; 83036; 85027; 86780; C9803-CS; Q0162; U0003; U0005